=== PATIENT | female | born 1975 | race Caucasian/White ===

== ENCOUNTER 2020-05-06 11:00 | Outpatient (REF) | payer MEDICAID, SELFPAY ==
--- NOTE | 2020-05-06 11:43 | XR_ITS ---
EXAMINATION: XR CHEST CLINICAL INFORMATION: Cough, shortness of breath COMPARISON: 12/23/2016 TECHNIQUE: 2 views of the chest were obtained. FINDINGS: No significant abnormality is noted involving the heart, lungs, mediastinum, bony thorax or soft tissues. XR/XR chest 2V IMPRESSION: No acute pulmonary disease. No significant change from prior study
[2020-05-06 12:27] LABS: Color Urine YELLOW; Glucose Urine UA NEG (NEG); Leukocyte Esterase Urine TRACE (NEG); Nitrite Urine NEG (NEG); Specific Gravity - Urine 1.025 (1.005-1.025); Urine Blood NEG (NEG); Urine Ketones NEG (NEG); Urine Protein TRACE MG/DL (NEG-TRACE)
[2020-05-06 12:27] LABS: MANUAL DIFF FLAG NO
[2020-05-06 12:28] LABS: Appearance Urine CLOUDY
[2020-05-06 12:41] LABS: Bacteria Urine 1+ /LPF; Mucus Urine 1+ /LPF; Squamous Epithelial Cell Urine 3+ /LPF; Trichomonas Urine NOTED
[2020-05-06 12:41] LABS: Basophils Absolute Auto 0.1 X10*3/uL (0.0-0.2); Basophils Percent Auto 0.8 % (0-2); Eosinophils Absolute Auto 0.2 X10*3/uL (0.0-0.4); Eosinophils Percent Auto 2.3 % (0-4); Hematocrit 36.7 % (37-47); Hemoglobin 11.7 g/dl (12.0-16.0); Imm Gran Abs Auto 0.02 X10*3/uL (0.00-0.03); Imm Gran Pct Auto 0.3 % (0.0-0.4); Lymphocytes Absolute Auto 1.8 X10*3/uL (1.2-4.9); Lymphocytes Percent Auto 22.3 % (20-40); Mean Corpuscular HGB Conc 31.9 g/dl (31.0-35.0); Mean Corpuscular Hemoglobin 27.9 pg (27.0-33.0); Mean Corpuscular Volume 87.6 fL (80-98); Mean Platelet Volume 10.4 fL (9.4-12.3); Monocytes Absolute Auto 0.7 X10*3/uL (0.1-1.2); Monocytes Percent Auto 8.9 % (2-11); Neutrophils Absolute Auto 5.1 X10*3/uL (2.0-8.3); Neutrophils Percent Auto 65.4 % (45-73); Platelet Count 332 X10*3/uL (160-400); Red Blood Count 4.19 X10*6/uL (4.20-5.50); Red Cell Distribution Width 16.7 % (11.0-16.0); White Blood Count 7.9 X10*3/uL (4.8-10.8)
[2020-05-06 13:16] LABS: Estimated Average Glucose 108 mg/dL; Hemoglobin A1c % 5.4 %; TSH reflex Free T4 1.77 mIU/mL (0.32-4.0); Vitamin D 25-OH Total 4.8 ng/mL (>30)
[2020-05-06 13:19] LABS: Alanine Aminotransferase 24 U/L (0-31); Albumin Level 4.4 g/dL (3.5-5.0); Alkaline Phosphatase 70 U/L (39-117); Anion Gap 14 (12-20); Aspartate Amino Transferase 26 U/L (5-31); Bilirubin Total 0.6 mg/dL (0.0-1.0); Blood Urea Nitrogen 6 mg/dL (9-16); Calcium 8.9 mg/dL (8.4-10.2); Carbon Dioxide 24 mmol/L (22-29); Chloride 103 mmol/L (96-108); Cholesterol 355 mg/dL; Estimated Glomerular Filt Rate > 60; Glucose Random 101 mg/dL (60-115); HDL Cholesterol 34 mg/dL; Iron 95 mcg/dL (30-160); LDL Cholesterol Calculated 267 mg/dl; Percent Iron Saturation 21 % (15-50); Potassium 3.7 mmol/l (3.3-5.1); Sodium 137 mmol/L (135-145); Total Iron Binding Capacity 448 mcg/dL (228-428); Total Protein 7.1 g/dL (6.5-8.0); Triglycerides 271 mg/dL; Unsaturated Iron Binding 353 ug/dL
[2020-05-06 13:38] LABS: Folate 8.1 ng/mL (> or = 4.0); Vitamin B12 308 pg/mL (200-900)
[2020-05-08 08:31] LABS: ~HepC Num1 0.08 S/CO (0.00-0.79); ~Hepatitis C Antibody Nonreactive (Nonreactive)
[2020-05-08 08:49] LABS: Hepatitis A Antibody IgG Nonreactive (Nonreactive); ~Hepatitis A Antibody IgG 0.34 S/CO (0.00-0.99)
[2020-05-08 08:57] LABS: HBsAGNum1 0.22 S/CO (0.00-0.99); Hepatitis B Core Antibody Nonreactive (Nonreactive); Hepatitis B Surface Antigen Negative (Negative); ~Hepatitis B Surface Antibody REACTIVE (Nonreactive)
== END 2020-05-06 11:01 | disposition home or self-care (01) ==
LOC: HO.LAB 11:00
PROVIDERS: PCP Registered Nurse; Visit Provider Registered Nurse
DX: G47.19 Other hypersomnia (principal); F17.200 Nicotine dependence, unspecified, uncomplicated; G47.9 Sleep disorder, unspecified; R05 Cough; R06.02 Shortness of breath; Z71.89 Other specified counseling; M54.9 Dorsalgia, unspecified
CPT/HCPCS: 36415; 71046; 80053; 80061; 81001; 82306; 82607; 82746; 83036; 83540; 84443; 85025; 86704; 86706; 86708; 86803; 87340

== ENCOUNTER 2020-05-27 15:55 | Outpatient (REF) | payer MEDICAID, SELFPAY | END 2020-05-27 15:56 | disposition home or self-care (01) | LOC: HO.LAB 15:55 | PROVIDERS: PCP Registered Nurse; Visit Provider Internal Medicine | DX: Z20.828 Contact with and (suspected) exposure to other viral communicable diseases (principal) | CPT/HCPCS: C9803; U0003 ==

== ENCOUNTER → 2020-06-09 13:53 | Outpatient (BNVA) | payer MEDICAID, SELFPAY | PROVIDERS: PCP Registered Nurse; Visit Provider Internal Medicine | DX: R06.00 Dyspnea, unspecified (principal); R05 Cough; F17.200 Nicotine dependence, unspecified, uncomplicated | CPT/HCPCS: 99202 ==

== ENCOUNTER 2022-07-14 21:06 | Emergency (ER) | payer MEDICAID, SELFPAY ==
--- NOTE | ~2022-07-14 | US_ITS ---
EXAMINATION: US VENOUS WITH DOPPLER UPPER EXTREMITY, RIGHT CLINICAL INFORMATION: Swelling. Pain. COMPARISON: None TECHNIQUE: Ultrasound of the upper extremity is performed using compression sonography and color and pulse Doppler flow with assessment of augmentation of flow. There is also imaging and Doppler assessment of the jugular and subclavian veins. Spectral analysis with color-flow imaging is performed. FINDINGS: Respiratory variation, normal compression, and augmented flow are noted throughout the upper extremity including the axillary, brachial, cubital, and radial and ulnar veins. There is normal flow in the internal jugular and subclavian veins. There is no visible deep or superficial thrombophlebitis. If the patient's symptoms progress, a followup ultrasound in 5 -7 days might be of value to exclude proximal propagation from a nonvisualized distal arm vein. US/US venous duplex UE RT IMPRESSION: No DVT demonstrated in the right upper extremity
[2022-07-14 21:14] VITALS: BP 130/74; PULSE 104; RESP 18; O2SAT 99; BMI 31.1
--- NOTE | 2022-07-14 21:52 | ED_ITS ---
HPI - General Adult General Chief complaint: General Medical Stated complaint: Right arm injury Time Seen by Provider: 07/14/22 21:25 Source: patient Mode of arrival: ambulatory Limitations: no limitations History of Present Illness HPI narrative: Patient otherwise healthy complaining of pain in the right forearm for last 1 week patient went to bed next thing she woke up noticed swelling gradually swelling got worse with pain no history of DVTs in the past no IV drug use no trauma Related Data Home Medications Medication Instructions Recorded Confirmed albuterol sulfate 90 mcg/actuation 2 puff inhalation Q6H PRN 06/09/20 aerosol inhaler (ProAir HFA) fluticasone 100 mcg-salmeterol 50 1 inh inhalation BID 06/09/20 mcg/dose blistr powdr for inhalation (Advair Diskus) Previous Rx's Medication Instructions Recorded ibuprofen 600 mg tablet 600 mg PO Q6H PRN fever or pain 07/14/22 #30 tabs Allergies Allergy/AdvReac Type Severity Reaction Status Date / Time Sulfa (Sulfonamide Allergy Unknown Unknown Verified 06/09/20 14:04 Antibiotics) Review of Systems Review of Systems: Yes all other systems are reviewed and are negative [facility] [place] Past Medical History Medical History Cough Dyspnea on exertion Smoker Social History Social History Cigarette Packs Per Day: 1 Cigarettes Per Day: 20 Years Smoked: 27 years Advance Directives: No Advance Directives Information Provided: No Physical Exam ED Vital Signs: Vital Signs - 24 hr 07/14/22 21:14 Pulse Rate 104 H Respiratory Rate 18 Blood Pressure 130/74 Pulse Oximetry 99 Oxygen Delivery Method Room Air BMI result Body Mass Index 31.1 Const Other: Appearance: Alert. Oriented X3. No acute distress. ENT: Pharynx normal. Oral Mucosa moist Neck: Normal inspection. Neck supple. CVS: Normal heart rate and rhythm. Pulses normal. Respiratory: No respiratory distress. Equal air entry bilateral, no wheezing/rales/rhonchi Skin: Skin warm and dry. Normal skin color. Normal skin turgor. Extremities: No lower extremity edema. Right forearm swollen mostly in the volar aspect increased pain on flexion of the fingers and hand neurovascular intact Neuro: Oriented X 3. Extrem Elbow/forearm/wrist images: 1. Diffuse swelling and tenderness right anterior aspect of the forearm pain increases on palmar flexion of the Medications Administered Discontinued Medications Generic Name Dose Route Start Last Admin Trade Name Dusty PRN Reason Stop Dose Admin Ketorolac Tromethamine 30 mg 07/14/22 23:44 07/14/22 23:49 Ketorolac Tromethamine 30 Mg/Ml Vial IVPUSH 07/14/22 23:45 30 mg ONCE ONE Administration Medical Decision Making Lab Data 07/14/22 22:35 07/14/22 22:35 Labs: Lab Results 07/14/22 07/14/22 07/14/22 Range/Units 22:35 22:35 22:35 WBC 6.8 (4.8-10.8) X10*3/uL RBC 3.74 L (4.20-5.50) X10*6/uL Hgb 9.8 L (12.0-16.0) g/dl Hct 31.1 L (37.0-47.0) % MCV 83.2 (80.0-98.0) fL MCH 26.2 L (27.0-33.0) pg MCHC 31.5 (31.0-35.0) g/dl RDW 15.8 (11.0-16.0) % Plt Count 446 H (160-400) X10*3/uL MPV 10.4 (9.4-12.3) fL Immature Gran % (Auto) 0.3 (0.0-0.4) % Neut % (Auto) 56.3 (45-73) % Lymph % (Auto) 29.4 (20-40) % [place]asta % (Auto) 9.5 (2-11) % Eos % (Auto) 3.3 (0-4) % Baso % (Auto) 1.2 (0-2) % Lymph # (Auto) 2.0 (1.2-4.9) X10*3/uL [place] # (Auto) 0.6 (0.1-1.2) X10*3/uL Eos # (Auto) 0.2 (0.0-0.4) X10*3/uL Baso # (Auto) 0.1 (0.0-0.2) X10*3/uL Abs Immat Gran (auto) 0.02 (0.00-0.03) X10*3/uL Absolute Neuts (auto) 3.8 (2.0-8.3) x10*3/uL Absolute Nucleated RBC 0.000 (0.0-0.012) X10*3/uL Nucleated RBC % (auto) 0.0 (0.0-0.2) /100WBC ESR (0-20) MM/HR PT 11.9 (10.0-13.1) SEC INR 1.0 (0.9-1.1) D-Dimer High Sensitivty 332 NG/ML Sodium 138 (135-145) mmol/L Potassium 3.6 (3.3-5.1) mmol/L Chloride 104 (96-108) mmol/L Carbon Dioxide 24 (22-29) mmol/L Anion Gap 14 (12-20) BUN 5 L (9-16) mg/dL Creatinine 0.72 (0.5-1.4) mg/dL Estim Creat Clear Calc 92.8 Estimated GFR > 60 Random Glucose 106 (60-115) mg/dL Calcium 9.5 D (8.4-10.2) mg/dL Total Bilirubin 0.2 (0.0-1.0) mg/dL AST 29 (5-31) U/L ALT 35 H (0-31) U/L Alkaline Phosphatase 73 (39-117) U/L C-Reactive Protein 1.27 H (< or = 0.50) mg/dL Total Protein 7.2 (6.5-8.0) g/dL Albumin 4.4 (3.5-5.0) g/dL 07/14/22 Range/Units 22:35 WBC (4.8-10.8) X10*3/uL RBC (4.20-5.50) X10*6/uL Hgb (12.0-16.0) g/dl Hct (37.0-47.0) % MCV (80.0-98.0) fL MCH (27.0-33.0) pg MCHC (31.0-35.0) g/dl RDW (11.0-16.0) % Plt Count (160-400) X10*3/uL MPV (9.4-12.3) fL Immature Gran % (Auto) (0.0-0.4) % Neut % (Auto) (45-73) % Lymph % (Auto) (20-40) % Shasta % (Auto) (2-11) % Eos % (Auto) (0-4) % Baso % (Auto) (0-2) % Lymph # (Auto) (1.2-4.9) X10*3/uL [place] # (Auto) (0.1-1.2) X10*3/uL Eos # (Auto) (0.0-0.4) X10*3/uL Baso # (Auto) (0.0-0.2) X10*3/uL Abs Immat Gran (auto) (0.00-0.03) X10*3/uL Absolute Neuts (auto) (2.0-8.3) x10*3/uL Absolute Nucleated RBC (0.0-0.012) X10*3/uL Nucleated RBC % (auto) (0.0-0.2) /100WBC ESR 23 H (0-20) MM/HR PT (10.0-13.1) SEC INR (0.9-1.1) D-Dimer High Sensitivty NG/ML Sodium (135-145) mmol/L Potassium (3.3-5.1) mmol/L Chloride (96-108) mmol/L Carbon Dioxide (22-29) mmol/L Anion Gap (12-20) BUN (9-16) mg/dL Creatinine (0.5-1.4) mg/dL Estim Creat Clear Calc Estimated GFR Random Glucose (60-115) mg/dL Calcium (8.4-10.2) mg/dL Total Bilirubin (0.0-1.0) mg/dL AST (5-31) U/L ALT (0-31) U/L Alkaline Phosphatase (39-117) U/L C-Reactive Protein (< or = 0.50) mg/dL Total Protein (6.5-8.0) g/dL Albumin (3.5-5.0) g/dL Discharge Plan Discharge Clinical Impression: Musculoskeletal limb pain Patient Disposition: Home, Self-Care Instructions: Musculoskeletal Pain (ED) Additional Instructions: cause of pain in her right forearm is not very clear likely muscular pain/inflammatory disease Wear the splint for support Ibuprofen for pain Follow with PCP if pain continues to get worse Prescriptions: New ibuprofen 600 mg tablet 600 mg PO Q6H PRN (Reason: fever or pain) Qty: 30 0RF No Action fluticasone propion-salmeterol [Advair Diskus] 100-50 mcg/dose blister with d evice 1 inh inhalation BID albuterol sulfate [ProAir HFA] 90 mcg/actuation HFA aerosol inhaler 2 puff inhalation Q6H PRN Interventions: ED Discharge Assessment Last Done: 07/14/22 23:57 Discharge Date/Time: 07/14/22 23:58
[2022-07-14 22:41] LABS: MANUAL DIFF FLAG NO
[2022-07-14 22:43] LABS: Basophils Absolute Auto 0.1 X10*3/uL (0.0-0.2); Basophils Percent Auto 1.2 % (0-2); Eosinophils Absolute Auto 0.2 X10*3/uL (0.0-0.4); Eosinophils Percent Auto 3.3 % (0-4); Hematocrit 31.1 % (37.0-47.0); Hemoglobin 9.8 g/dl (12.0-16.0); Imm Gran Abs Auto 0.02 X10*3/uL (0.00-0.03); Imm Gran Pct Auto 0.3 % (0.0-0.4); Lymphocytes Percent Auto 29.4 % (20-40); Mean Corpuscular HGB Conc 31.5 g/dl (31.0-35.0); Mean Corpuscular Hemoglobin 26.2 pg (27.0-33.0); Mean Corpuscular Volume 83.2 fL (80.0-98.0); Mean Platelet Volume 10.4 fL (9.4-12.3); Monocytes Absolute Auto 0.6 X10*3/uL (0.1-1.2); Monocytes Percent Auto 9.5 % (2-11); Neutrophils Absolute Auto 3.8 x10*3/uL (2.0-8.3); Neutrophils Percent Auto 56.3 % (45-73); Platelet Count 446 X10*3/uL (160-400); Red Blood Count 3.74 X10*6/uL (4.20-5.50); Red Cell Distribution Width 15.8 % (11.0-16.0); White Blood Count 6.8 X10*3/uL (4.8-10.8)
[2022-07-14 22:48] LABS: Prothrombin Time 11.9 SEC (10.0-13.1)
[2022-07-14 22:57] LABS: Alanine Aminotransferase 35 U/L (0-31); Albumin Level 4.4 g/dL (3.5-5.0); Alkaline Phosphatase 73 U/L (39-117); Anion Gap 14 (12-20); Aspartate Amino Transferase 29 U/L (5-31); Bilirubin Total 0.2 mg/dL (0.0-1.0); Blood Urea Nitrogen 5 mg/dL (9-16); C Reactive Protein 1.27 mg/dL (< or = 0.50); Calcium 9.5 mg/dL (8.4-10.2); Carbon Dioxide 24 mmol/L (22-29); Chloride 104 mmol/L (96-108); Creatinine Clr Calc Pharmacy 92.8; Estimated Glomerular Filt Rate > 60; Glucose Random 106 mg/dL (60-115); Potassium 3.6 mmol/L (3.3-5.1); Sodium 138 mmol/L (135-145); Total Protein 7.2 g/dL (6.5-8.0)
[2022-07-14 23:08] LABS: D Dimer High Sensitivity 332 NG/ML
[2022-07-14 23:28] LABS: Erythrocyte Sedimentation Rate 23 MM/HR (0-20)
--- NOTE | 2022-07-14 23:43 | PC.NURSE ---
Patient refused splint states it hurts too much Dr. Ortega notified.
[2022-07-14] MEDS: Ketorolac Tromethamine 30 MG/ML VIAL IVPUSH (23:49)
--- NOTE | 2022-07-14 23:57 | PC.NURSE ---
Patient changed her mind now wants wrist splint
== END 2022-07-14 23:58 | disposition home or self-care (01) ==
PROVIDERS: Emergency Provider Internal Medicine
DX: M79.18 Myalgia, other site (principal); M79.631 Pain in right forearm; F17.210 Nicotine dependence, cigarettes, uncomplicated
CPT/HCPCS: 36415; 80053; 85025; 85379; 85610; 85652; 86140; 93971; 96374; 99283; 99284; J1885

== ENCOUNTER 2023-09-25 13:34 | Emergency (ER) | payer MEDICAID, SELFPAY ==
--- NOTE | ~2023-09-25 | XR_ITS ---
EXAMINATION: XR FOREARM, LEFT CLINICAL INFORMATION: Injury pain COMPARISON: None available. TECHNIQUE: AP and lateral views of the left forearm were obtained. FINDINGS: Plate and multiple screws arthrodesis of the radius and ulna, hardware intact properly positioned. Old fracture healed. Bone alignment satisfactory. Surrounding soft tissue unremarkable. XR/XR forearm LT 2V IMPRESSION: 1. Hardware arthrodesis of the radius and ulna, hardware intact properly positioned. 2. No acute fracture.
--- NOTE | 2023-09-25 13:56 | ED_ITS ---
HPI - Extremity Injury (Upper) General Chief Complaint: Extremity Injury, Upper Stated Complaint: L arm pain Time Seen by Provider: 09/25/23 14:29 Source: patient Mode of arrival: ambulatory Limitations: no limitations History of Present Illness HPI narrative: Patient is a 48-year-old female who presents to the emergency department of left forearm pain, reports that she had struck her arm against something last week. She presented to an urgent care, was advised that she had a strain of the shoulder due to palpable muscle tenderness and tightness on physical examination. Patient denies having any x-ray obtained. She reports that she has metal plates in this forearm secondary to fractures as a teenager. Reports weakness to the left hand, continued pain despite tylenol and advil. Related Data Home Medications Medication Instructions Recorded Confirmed albuterol sulfate 90 mcg/actuation 2 puff inhalation Q6H PRN 06/09/20 aerosol inhaler (ProAir HFA) fluticasone 100 mcg-salmeterol 50 1 inh inhalation BID 06/09/20 mcg/dose blistr powdr for inhalation (Advair Diskus) Previous Rx's Medication Instructions Recorded ibuprofen 600 mg tablet 600 mg PO Q6H PRN fever or pain 07/14/22 #30 tabs Allergies Allergy/AdvReac Type Severity Reaction Status Date / Time Sulfa (Sulfonamide Allergy Unknown Unknown Verified 09/25/23 13:57 Antibiotics) Review of Systems Review of Systems: Yes all other systems are reviewed and are negative [facility]END[facility] TO [facility] Past Medical History Attestation statement: The following information was validated with the patient. Source: old records reviewed Medical History Dyspnea on exertion Cough Smoker Social History Social History Cigarette Packs Per Day: 1 Cigarettes Per Day: 20 Years Smoked: 27 years Advance Directives: No Advance Directives Information Provided: No Physical Exam Vital Signs: Vital Signs: Last Vital Signs Temp 98.3 F 09/25/23 13:57 Pulse 103 H 09/25/23 13:57 Resp 18 09/25/23 13:57 BP 155/85 H 09/25/23 13:57 Pulse Ox 100 09/25/23 13:57 O2 Del Method Room Air 09/25/23 13:57 BMI result Body Mass Index 29.3 Appearance: Alert.?Oriented to person, place and time. No acute distress.?Normal affect. Neck: Normal inspection.? Neck supple.?? CVS: Heart sounds normal. Normal heart rate and rhythm.? Pulses normal.?? Respiratory: No respiratory distress.? Lung sounds clear to auscultation bilaterally?? Abdomen: Soft and non-tender. Normoactive bowel sounds. Skin: Skin warm and dry.? Normal skin color.? Extremities: No extremity edema. Diffuse tenderness upon palpation to the mid forearm. 2+ radial pulse bilaterally. Sensation intact.? Neuro: Moves all extremities spontaneously. Sensation intact bilaterally. Ambulates with normal steady gait. Course Course Course Narrative: This is an RME: Additional HPI, ROS, PE not included below will be deferred to primary provider. Patient is a 48-year-old female who presents to the emergency department of left forearm pain, reports that she had struck her arm against something last week. She presented to an urgent care, was advised that she had a strain of the shoulder due to palpable muscle tenderness and tightness on physical examination. Patient denies having any x-ray obtained. She reports that she has metal plates in this forearm secondary to fractures as a teenager. Reports weakness to the left hand, continued pain despite tylenol and advil. Plan: XR Medications Administered Discontinued Medications Generic Name Dose Route Start Last Admin Trade Name Freq PRN Reason Stop Dose Admin Acetaminophen 975 mg 09/25/23 14:41 09/25/23 15:31 Acetaminophen 325 Mg Tablet PO 09/25/23 14:42 Not Given ONCE ONE Ibuprofen 600 mg 09/25/23 14:41 09/25/23 15:31 Ibuprofen 600 Mg Tablet PO 09/25/23 14:42 Not Given ONCE ONE Medical Decision Making Medical Decision Making MDM Narrative: Patient is a 48-year-old female presents emergency department for evaluation of traumatic left forearm pain as per HPI physical exam portion of this note. XR obtained today to evaluate for osseous abnormality, revealing displaced hardware with loose screw from the radial plate, Orthopedics was consulted and recommends outpatient follow-up. Extremities neurovascularly intact distally. Discussed conservative care and OTC pain management. All questions answered. Stable for discharge Differential Diagnosis Differential Diagnoses: The differential diagnosis associated with the presentation includes (Fracture, dislocation, displaced hardware, contusion, strain) Consult Healthcare Provider Management of the patient was discussed with: Ring Spinner (Orthopedics) Guillermina JOSÉ - likely chronic, outpatient follow-up Independent Interpretation I performed an independent interpretation of an: Plain X-Ray (Displaced hardware of the left radius with screw loose) Radiology Impression Discussion of test interpretation with radiology: I have reviewed the radiologist's reading. Radiologist Impression: XR/XR forearm LT 2V IMPRESSION: 1. Hardware arthrodesis of the radius and ulna, hardware intact properly positioned. 2. No acute fracture. Prescription Management I considered prescription management with: Pain Medication (Acetaminophen/ibuprofen) Discharge Plan Discharge Clinical Impression: Contusion of forearm, left Patient Disposition: Home, Self-Care Instructions: Contusion in Adults (ED) Additional Instructions: Be sure to rest, apply ice to the area for 10-15 minutes 3-4 times daily, elevate your arm when possible. You can take ibuprofen 200 mg, 3 tablets (600mg) every 6-8 hours as needed for pain, in addition to Tylenol 500 mg, 2 tablets (1,000mg) every 4-6 hours as needed for pain, but not to exceed 3 doses daily (3,000mg).? As discussed, it does appear as though 1 of the screws from your plate in the forearm is displaced. Please contact the orthopedic office Tuesday morning when they open to arrange for further follow-up. Return back to emergency department any new or worsening symptoms or concerns. Prescriptions: No Action ibuprofen 600 mg tablet 600 mg PO Q6H PRN (Reason: fever or pain) Qty: 30 0RF fluticasone propion-salmeterol [Advair Diskus] 100-50 mcg/dose blister with device 1 inh inhalation BID albuterol sulfate [ProAir HFA] 90 mcg/actuation HFA aerosol inhaler 2 puff inhalation Q6H PRN Referrals: Marlen Griffin PA-C [Physician Building Principal] -
[2023-09-25 13:57] VITALS: BP 155/85; PULSE 103; RESP 18; TEMP 36.8; O2SAT 100; BMI 29.3
--- NOTE | 2023-09-25 15:32 | PC.NURSE ---
patient refused pain medication, states she has been taking it at home with no relief
[2023-09-25 16:13] VITALS: BP 158/74; PULSE 91; RESP 18; TEMP 36.7; O2SAT 98
[2023-09-25 16:31] VITALS: BP 158/74; PULSE 91; RESP 18; TEMP 36.7; O2SAT 98
== END 2023-09-25 16:31 | disposition home or self-care (01) ==
PROVIDERS: Emergency Provider Student in an Organized Health Care Education/Training Program
DX: S50.12XA Contusion of left forearm, initial encounter (principal); W22.8XXA Striking against or struck by other objects, initial encounter; Y93.9 Activity, unspecified; Y92.9 Unspecified place or not applicable; Y99.9 Unspecified external cause status
CPT/HCPCS: 73090; 99283

== ENCOUNTER 2023-10-13 12:42 | Outpatient (REF) | payer MEDICAID, SELFPAY | END 2023-10-13 12:43 | disposition home or self-care (01) | LOC: HO.HOSX 12:42 | PROVIDERS: Visit Provider Physician Assistant | DX: M79.601 Pain in right arm (principal); R20.2 Paresthesia of skin; Z96.9 Presence of functional implant, unspecified; S92.351A Displaced fracture of fifth metatarsal bone, right foot, initial encounter for closed fracture; X58.XXXA Exposure to other specified factors, initial encounter; Y93.9 Activity, unspecified; Y92.9 Unspecified place or not applicable; Y99.9 Unspecified external cause status | CPT/HCPCS: 99212 ==

== ENCOUNTER 2023-10-13 14:53 | Outpatient (AMB) | payer MEDICAID, SELFPAY ==
--- NOTE | 2023-10-13 15:23 | MHC.OFFVIS ---
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 Patient reports that she recently started working at [employer] and has to frequently lift items. States a month ago she woke up with numbness in her arm and the following day day she had excruciating pain. She continues to have pain/discomfort with no improvement. States her pain starts in her forearm and will radiate up and down her arm. She has pain with any type of movement of her arm and numbness in fingers. Found very little to no relief with diclofenac cream. No relief with ibuprofen and Tylenol. No previous tx. 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 She states she had a both-bone forearm fracture approximately 35 years ago and has had significant limitations with supination since the injury. 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 She is performing repetitive motions and lifting which is irritating her left forearm. She has noticed some intermittent numbness in the left forearm which radiates into her hand and fingers. She also feels pain with wrist extension that goes into her forearm. She was seen in the emergency department where x-rays were obtained which showed hardware intact in both bones and she was referred to our office for ortho eval. 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 She does have hypersensitivity over the volar aspect of the forearm which extends into the carpal canal of the left wrist. She has a positive Tinel's over the cubital and carpal tunnel. She can perform cross fingers and okay sign. Finger abduction adduction intact. She can supinate approximately 10 degrees. She has full pronation. Results Reviewed Results Reviewed: X-rays of the left forearm obtained in the emergency department on September 24 significant for intact orthopedic hardware with no new fractures or dislocations. Assessment & Plan Assessment & Plan (1) Retained orthopedic hardware: Code(s): Z96.9 - Presence of functional implant, unspecified Category: Medical (2) Paresthesia and pain of left extremity: Code(s): M79.609 - Pain in unspecified limb; R20.2 - Paresthesia of skin Category: Medical Plan We discussed options today which include EMG/nerve conduction study of the left upper extremity to further evaluate the source of her numbness. I explained if this comes back with some sort of neuropathy we can discuss potential surgical intervention in hopes that it will solve the discomfort she is experiencing in her left forearm and hand. If her EMG study is negative then we may need to look at the hardware as her source of pain and potentially discuss removal of hardware in hopes that this will help resolve her symptoms. I did explain to her that 1 or the other procedure or both may or may not give full resolution of her symptoms and we need to understand these risks benefits and alternatives to each procedure if we were to go forward with either of them. She does understand this and will see me back once the EMG study is completed so we can discuss the next step in her treatment. Orders: Orders XR foot RT min 3V Today S92.351A - Displaced fracture of fifth metatarsal bone, right foot, initial encounter for closed fracture NE nerve conduction velocity Today R20.0 - Anesthesia of skin, R20.2 - Paresthesia of skin NE electromyogram (EMG) Today R20.0 - Anesthesia of skin, R20.2 - Paresthesia of skin
[2023-10-13 16:19] VITALS: BMI 29.3
== END 2023-10-13 15:58 | disposition home or self-care (01) ==
PROVIDERS: Visit Provider Physician Assistant
DX: Z96.9 Presence of functional implant, unspecified (principal); M79.609 Pain in unspecified limb; R20.2 Paresthesia of skin
CPT/HCPCS: 99203

== ENCOUNTER 2023-10-18 16:51 | Emergency (ER) | payer MEDICAID, SELFPAY ==
--- NOTE | ~2023-10-18 | CT_ITS ---
EXAMINATION: CT abdomen pelvis wo IV con CLINICAL INFORMATION: Reason for Exam Colitis with significant anemia COMPARISON: No prior CT available for comparison. TECHNIQUE: Multidetector volumetric imaging was performed from the superior aspect of the liver through the pubic symphysis , noncontrast CT. Sagittal and coronal reformatted images were obtained on the technologist's workstation. This CT examination was performed using dose optimization techniques as appropriate, variously including the following: *Automated exposure control *Adjustment of mA and/or kV according to patient size (this includes techniques or standardized protocols for targeted exams where dose is matched to indication/reason for exam; i.e. extremities or head) *Use of iterative reconstruction technique DLP: 549 mGy-cm FINDINGS: LOWER THORAX: Included lung bases are clear. HEPATOBILIARY: No focal hepatic lesions. No biliary ductal dilatation. GALLBLADDER: Gallbladder unremarkable. SPLEEN: There is peripherally calcified mass in the spleen measures 2.8 cm probably chronic. Uncertain etiology. Could be infection or neoplastic. Evaluation is limited due to lack of contrast. PANCREAS: No focal mass or ductal dilatation. STOMACH AND GASTROINTESTINAL TRACT: Stomach is grossly unremarkable. Circumferential wall thickening of the colon with low attenuation of its mucosal lining especially the cecum, nonspecific and could be sequela of chronic or subclinical or prior colitis. No evidence of bowel obstruction. ADRENALS: No adrenal nodules. KIDNEYS/URETERS: There is a cyst in the right kidney 1.8 cm this is likely a benign Bosniak class I cyst. No follow-up imaging recommended. No kidney stone or hydronephrosis. Perinephric fat are clear. URINARY BLADDER: Partially decompressed. PELVIC VISCERA: There is a large uterine mass 7.5 cm uncertain etiology not well characterized on this CT scan. No pelvic lymphadenopathy. No free air or fluid. Rectum and perirectal fat are clear. PERITONEUM: No free air or fluid. LYMPH NODES: No lymphadenopathy. VASCULAR:Abdominal aorta normal in size, no aneurysm found. BONES, ABDOMINAL WALL AND SOFT TISSUES: Age-appropriate changes of the spine and skeletal system, no destructive osteolytic or osteosclerotic bone lesion found CT/CT abdomen pelvis wo IV con IMPRESSION: 1. Circumferential wall thickening of the colon with low attenuation of its mucosal lining especially the cecum, nonspecific and could be sequela of chronic or subclinical or prior colitis. No evidence of bowel obstruction. 2. Large uterine mass 7.5 cm uncertain etiology not well characterized on this CT scan. Would recommend correlation with follow-up pelvic ultrasound. 3. Peripherally calcified mass in the spleen 2.8 cm probably chronic. Could be infection or neoplastic. Evaluation is limited due to lack of contrast.
--- NOTE | 2023-10-18 16:59 | ED.ABDPAIN ---
HPI - Abdominal Pain General Chief Complaint: Abdominal Pain Stated Complaint: upper L abd pain, hx of renal failure, N/V Time Seen by Provider: 10/18/23 16:58 Source: patient Mode of arrival: ambulatory Limitations: no limitations History of Present Illness HPI narrative: Patient came with vomiting and diarrhea since 03:00 last night vomited about 15 times and same number of watery diarrhea with diffuse abdominal cramps denied any seafood use no recent travel no other family sick no fever no chills no upper respiratory symptoms no alcohol use no seafood intake patient does have menorrhagia with periods lasting more than 2 weeks not taking iron pills, no melena no history of ulcer has not seen any group chief operator for a while Related Data Home Medications ?Medication ?Instructions ?Recorded ?Confirmed albuterol sulfate 90 mcg/actuation 2 puff inhalation Q6H PRN 06/09/20 aerosol inhaler (ProAir HFA) fluticasone 100 mcg-salmeterol 50 1 inh inhalation BID 06/09/20 mcg/dose blistr powdr for inhalation (Advair Diskus) diclofenac sodium 1 % topical gel topical 10/13/23 10/13/23 Previous Rx's ?Medication ?Instructions ?Recorded ibuprofen 600 mg tablet 600 mg PO Q6H PRN fever or pain 07/14/22 #30 tabs dicyclomine 20 mg tablet 20 mg PO QID PRN abdominal pain 10/18/23 #20 tabs ferrous sulfate 325 mg (65 mg 325 mg PO DAILY #90 tabs 10/18/23 iron) tablet ondansetron 4 mg disintegrating 4 mg PO Q6-8H PRN nausea and 10/18/23 tablet vomiting #10 tabs Allergies Allergy/AdvReac Type Severity Reaction Status Date / Time Sulfa (Sulfonamide Allergy Unknown Unknown Verified 10/18/23 17:09 Antibiotics) Review of Systems Review of Systems Yes all other systems are reviewed and are negative PMFSH Past Medical History Medical History (Updated 10/18/23 @ 23:53 by Jordan Chavez MD) Dyspnea on exertion Surgical History (Updated 10/18/23 @ 17:19 by Jordan Chavez MD) History of appendectomy Social History Social History Alcohol intake: current Alcohol intake frequency: a few times a week Cigarette Packs Per Day: 1 Cigarettes Per Day: 20 Years Smoked: 27 years Smoked in Last 30 Days: Yes Use of substances other than those prescribed or required for medical reasons: No Advance Directives: No Advance Directives Information Provided: No Do you have a plan to hurt others: No Plan Patient : No Current occupational status: employed Current occupation: [employer], right hand dominant Physical Exam ED Vital Signs: Vital Signs - 24 hr 10/18/23 17:03 10/18/23 17:05 10/18/23 19:44 Temperature 97.6 F 97.6 F Pulse Rate 76 76 75 Respiratory Rate 18 18 16 Blood Pressure 165/70 H 165/70 H 118/72 Pulse Oximetry 99 99 100 Oxygen Delivery Method Room Air Room Air Room Air 10/18/23 21:31 10/19/23 00:14 Temperature 97.3 F 97.9 F Pulse Rate 72 81 Respiratory Rate 16 16 Blood Pressure 144/68 H 149/65 H Pulse Oximetry 97 98 Oxygen Delivery Method Room Air Room Air BMI result Body Mass Index 25.8 Appearance: Alert. Oriented X3. In moderate distress nauseated Eyes: No pallor or icterus ENT: Pharynx normal. Oral Mucosa moist Neck: Normal inspection. Neck supple. CVS: Normal heart rate and rhythm. Pulses normal. Respiratory: No respiratory distress. Equal air entry bilateral, no wheezing/rales/rhonchi Abdomen: Soft and diffuse tenderness no rebound tenderness or guarding Bowel sounds are present, no mass palpable, no CVA tenderness Skin: Skin warm and dry. Normal skin color. Normal skin turgor. Extremities: No lower extremity edema. No calf tenderness Neuro: Oriented X 3. Medical Decision Making Medical Decision Making MDM Narrative: Patient has acute gastroenteritis with iron deficiency anemia with history of same in the past used to be on iron tablets not taking for last 1 year does have heavy menstrual periods likely the cause for significant anemia iron profile showed decreased serum iron decreased TIBC and decrease transferrin saturation suggestive of chronic iron-deficiency anemia patient asymptomatic denies any significant shortness of breath does feel weak will give her p.o. iron tablets Lab Data 10/18/23 17:11 10/18/23 17:22 Labs: Lab Results 10/18/23 10/18/23 Range/Units 17:11 17:22 WBC 22.5 H (4.8-10.8) X10*3/uL RBC 3.90 L (4.20-5.50) X10*6/uL Hgb 7.7 L D (12.0-16.0) g/dl Hct 25.7 L (37.0-47.0) % MCV 65.9 L (80.0-98.0) fL MCH 19.7 L (27.0-33.0) pg MCHC 30.0 L (31.0-35.0) g/dl RDW 18.9 H (11.0-16.0) % Plt Count 351 (160-400) X10*3/uL MPV 10.0 (9.4-12.3) fL Immature Gran % (Auto) 0.6 H (0.0-0.4) % Neut % (Auto) 87.1 H (45-73) % Lymph % (Auto) 5.6 L (20-40) % Pacific % (Auto) 6.3 (2-11) % Eos % (Auto) 0.0 (0-4) % Baso % (Auto) 0.4 (0-2) % Lymph # (Auto) 1.3 (1.2-4.9) X10*3/uL Pacific # (Auto) 1.4 H (0.1-1.2) X10*3/uL Eos # (Auto) 0.0 (0.0-0.4) X10*3/uL Baso # (Auto) 0.1 (0.0-0.2) X10*3/uL Abs Immat Gran (auto) 0.14 H (0.00-0.03) X10*3/uL Absolute Neuts (auto) 19.6 H (2.0-8.3) x10*3/uL Absolute Nucleated RBC 0.000 (0.0-0.012) X10*3/uL Nucleated RBC % (auto) 0.0 (0.0-0.2) /100WBC Sodium 134 L (135-145) mmol/L Potassium 3.7 (3.3-5.1) mmol/L Chloride 100 (96-108) mmol/L Carbon Dioxide 23 (22-29) mmol/L Anion Gap 15 (12-20) BUN 9 (9-16) mg/dL Creatinine 0.63 (0.5-1.4) mg/dL Estim Creat Clear Calc 106.3 Estimated GFR > 60 Random Glucose 128 H (60-115) mg/dL Calcium 9.4 (8.4-10.2) mg/dL Magnesium 1.9 (1.6-2.6) mg/dL Iron 25 L (30-160) mcg/dL TIBC 464 H (228-428) mcg/dL % Saturation 5 L (15-50) % Unsat Iron Binding 439 ug/dL Total Bilirubin 0.4 (0.0-1.0) mg/dL AST 23 (5-31) U/L ALT 14 (0-31) U/L Alkaline Phosphatase 69 (39-117) U/L Total Protein 7.5 (6.5-8.0) g/dL Albumin 4.2 (3.5-5.0) g/dL Lipase 15 (8-78) U/L Medications Administered Discontinued Medications Generic Name Dose Route Start Last Admin Trade Name Freq PRN Reason Stop Dose Admin Dicyclomine HCl 20 mg 10/18/23 17:39 10/18/23 17:50 Dicyclomine Hcl 10 Mg Capsule PO 10/18/23 17:40 20 mg ONCE ONE Administration Ferrous Sulfate 324 mg 10/18/23 18:28 10/18/23 18:53 Ferrous Sulfate 324 Mg Tablet. PO 10/18/23 18:29 324 mg ONCE ONE Administration Sodium Chloride 1,000 mls @ 999 mls/hr 10/18/23 17:11 10/18/23 18:30 Ns IV 10/18/23 18:11 Infused .Q1H1M ONE Infusion Sodium Chloride 1,000 mls @ 999 mls/hr 10/18/23 21:18 10/19/23 00:07 Ns IV 10/18/23 22:18 Infused .Q1H1M ONE Infusion Loperamide HCl 2 mg 10/18/23 21:18 10/18/23 21:26 Loperamide Hcl 2 Mg Capsule PO 10/18/23 21:19 2 mg ONCE ONE Administration Morphine Sulfate 4 mg 10/18/23 17:41 10/18/23 17:51 Morphine Sulfate 4 Mg/Ml Cartridge IVPUSH 10/18/23 17:42 4 mg ONCE ONE Administration Protocol Ondansetron HCl 4 mg 10/18/23 17:11 10/18/23 17:26 Ondansetron Hcl 4 Mg/2 Ml Vial IVPUSH 10/18/23 17:12 4 mg ONCE ONE Administration Ondansetron HCl 4 mg 10/18/23 21:18 10/18/23 21:26 Ondansetron Hcl 4 Mg/2 Ml Vial IVPUSH 10/18/23 21:19 4 mg ONCE ONE Administration Prochlorperazine Edisylate 10 mg 10/18/23 23:07 10/18/23 23:28 Prochlorperazine Edisylate 10 Mg/2 Ml Vial IVPUSH 10/18/23 23:08 10 mg ONCE ONE Administration Discharge Plan Discharge Clinical Impression: Acute gastroenteritis, Iron deficiency anemia Patient Disposition: Home, Self-Care Instructions: Iron Rich Diet (ED), Iron Deficiency Anemia (ED), Gastroenteritis (ED) Additional Instructions: Drink plenty of fluids Take medication for nausea and vomiting as prescribed Take iron tablets daily Follow p with group chief operator for further management of dysfunctional uterine bleed Prescriptions: New ferrous sulfate 325 mg (65 mg iron) tablet 325 mg PO DAILY Qty: 90 2RF dicyclomine 20 mg tablet 20 mg PO QID PRN (Reason: abdominal pain) Qty: 20 0RF ondansetron 4 mg tablet,disintegrating 4 mg PO Q6-8H PRN (Reason: nausea and vomiting) Qty: 10 0RF No Action ibuprofen 600 mg tablet 600 mg PO Q6H PRN (Reason: fever or pain) Qty: 30 0RF fluticasone propion-salmeterol [Advair Diskus] 100-50 mcg/dose blister with device 1 inh inhalation BID albuterol sulfate [ProAir HFA] 90 mcg/actuation HFA aerosol inhaler 2 puff inhalation Q6H PRN diclofenac sodium 1 % gel topical Referrals: Tom Alba MD [Physician] - 2 weeks Interventions: ED Discharge Assessment Last Done: 10/19/23 00:14 Discharge Date/Time: 10/19/23 00:15 Print Language: Solomon Islander
[2023-10-18 17:00] VITALS: BP 154/80; PULSE 84; O2SAT 100
[2023-10-18 17:03] VITALS: BP 165/70; PULSE 76; RESP 18; TEMP 36.4; O2SAT 99; BMI 25.8
[2023-10-18 17:05] VITALS: BP 165/70; PULSE 76; RESP 18; TEMP 36.4; O2SAT 99
[2023-10-18] MEDS: 0.9 % Sodium Chloride 1,000 ML 999 ML IV ×2 (17:25→21:26)
[2023-10-18 17:26] LABS: MANUAL DIFF FLAG NO
[2023-10-18] MEDS: ondansetron HCL 4 MG/2 ML VIAL IVPUSH ×2 (17:26→21:26)
--- NOTE | 2023-10-18 17:28 | PC.NURSE ---
20gIV placed in the right AC - labs obtained/sent to lab. medication/IVF administered per provider order. pt requesting pain medication for abd pain - provider notified/aware.
[2023-10-18 17:30] LABS: Basophils Absolute Auto 0.1 X10*3/uL (0.0-0.2); Basophils Percent Auto 0.4 % (0-2); Hematocrit 25.7 % (37.0-47.0); Hemoglobin 7.7 g/dl (12.0-16.0); Imm Gran Abs Auto 0.14 X10*3/uL (0.00-0.03); Imm Gran Pct Auto 0.6 % (0.0-0.4); Lymphocytes Absolute Auto 1.3 X10*3/uL (1.2-4.9); Lymphocytes Percent Auto 5.6 % (20-40); Mean Corpuscular Hemoglobin 19.7 pg (27.0-33.0); Mean Corpuscular Volume 65.9 fL (80.0-98.0); Monocytes Absolute Auto 1.4 X10*3/uL (0.1-1.2); Monocytes Percent Auto 6.3 % (2-11); Neutrophils Absolute Auto 19.6 x10*3/uL (2.0-8.3); Neutrophils Percent Auto 87.1 % (45-73); Platelet Count 351 X10*3/uL (160-400); Red Cell Distribution Width 18.9 % (11.0-16.0); White Blood Count 22.5 X10*3/uL (4.8-10.8)
[2023-10-18 17:43] LABS: Alanine Aminotransferase 14 U/L (0-31); Albumin Level 4.2 g/dL (3.5-5.0); Alkaline Phosphatase 69 U/L (39-117); Anion Gap 15 (12-20); Aspartate Amino Transferase 23 U/L (5-31); Bilirubin Total 0.4 mg/dL (0.0-1.0); Blood Urea Nitrogen 9 mg/dL (9-16); Calcium 9.4 mg/dL (8.4-10.2); Carbon Dioxide 23 mmol/L (22-29); Chloride 100 mmol/L (96-108); Creatinine Clr Calc Pharmacy 106.3; Estimated Glomerular Filt Rate > 60; Glucose Random 128 mg/dL (60-115); Lipase 15 U/L (8-78); Magnesium 1.9 mg/dL (1.6-2.6); Potassium 3.7 mmol/L (3.3-5.1); Sodium 134 mmol/L (135-145); Total Protein 7.5 g/dL (6.5-8.0)
[2023-10-18] MEDS: Dicyclomine HCl 10 MG CAPSULE 20 MG PO (17:50)
[2023-10-18] MEDS: Morphine Sulfate 4 MG/ML CARTRIDGE IVPUSH (17:51)
[2023-10-18 18:25] LABS: Iron 25 mcg/dL (30-160); Percent Iron Saturation 5 % (15-50); Total Iron Binding Capacity 464 mcg/dL (228-428); Unsaturated Iron Binding 439 ug/dL
[2023-10-18] MEDS: Ferrous Sulfate 324 MG TABLET.DR PO (18:53)
[2023-10-18 19:44] VITALS: BP 118/72; PULSE 75; RESP 16; O2SAT 100
[2023-10-18] MEDS: Loperamide HCl 2 MG CAPSULE PO (21:26)
[2023-10-18 21:31] VITALS: BP 144/68; PULSE 72; RESP 16; TEMP 36.3; O2SAT 97
--- NOTE | 2023-10-18 22:40 | PC.NURSE ---
Patient continues to complain of nausea/ abd pain. Resting quietly on stretcher at this time.
[2023-10-18] MEDS: Prochlorperazine Edisylate 10 MG/2 ML VIAL IVPUSH (23:28)
--- NOTE | 2023-10-18 23:28 | PC.NURSE ---
this rn assumed care of pt, pt reporting nausea at this time, pt medicated per mar.
[2023-10-19 00:14] VITALS: BP 149/65; PULSE 81; RESP 16; TEMP 36.6; O2SAT 98
== END 2023-10-19 00:15 | disposition home or self-care (01) ==
PROVIDERS: Emergency Provider Internal Medicine
DX: K52.9 Noninfective gastroenteritis and colitis, unspecified (principal); D50.9 Iron deficiency anemia, unspecified; R11.2 Nausea with vomiting, unspecified; Z87.891 Personal history of nicotine dependence
CPT/HCPCS: 36415; 74176; 80053; 83540; 83690; 83735; 85025; 96361; 96374; 96375; 96376; 99284; J0737; J2270; J2405

== ENCOUNTER 2023-11-03 14:30 | Outpatient (REF) | payer MEDICAID, SELFPAY ==
--- NOTE | 2023-11-03 14:32 | EMG_ITS ---
Chief complaint: 1 month of pain and numbness on wrist and forearm History of left forearm ORIF 35 years ago Reason for referral: Evaluate for entrapment neuropathy Referred by: Marlen JOSÉ Procedure done: Left upper extremity NCS/EMG Precautions and/or limitations: None The limb temperature was monitored continuously and remained between 32-36 degrees C during the performance of the NCS. Nerve Conduction Studies Anti Sensory Summary Table ?Stim Site NR Onset (ms) Norm Onset (ms) Peak (ms) Norm Peak (ms) O-P Amp (?V) Norm O-P Amp Site1 Site2 Delta-0 (ms) Dist (cm) Kye (m/s) Norm Kye (m/s) Left Median Anti Sensory (2nd Digit) Wrist ? 2.9 3.6 <3.6 52.2 >10 Wrist 2nd Digit 2.9 14.0 48 Left Radial Anti Sensory (Thumb) Forearm ? 2.2 2.6 <3.1 14.0 Forearm Thumb 2.2 0.0 Left Ulnar Anti Sensory (5th Digit) Wrist ? 1.8 3.2 <3.7 43.5 >15.0 Wrist 5th Digit 1.8 14.0 78 Motor Summary Table ?Stim Site NR Onset (ms) Norm Onset (ms) O-P Amp (mV) Norm O-P Amp iAmp (mV) Amp (1st) (%) Site1 Site2 Delta-0 (ms) Dist (cm) Kye (m/s) Norm Kye (m/s) Left Median Motor (Abd Poll Brev) Wrist ? 3.5 <3.9 9.7 >4.5 12.4 100.0 Elbow Wrist 3.8 20.0 53 >45 Elbow ? 7.3 10.1 12.8 104.1 Left Ulnar Motor (Abd Dig Minimi) Wrist ? 2.7 <3.0 11.3 >5 13.8 100.0 B Elbow Wrist 3.1 16.5 53 >45 B Elbow ? 5.8 10.0 12.6 88.5 A Elbow B Elbow 1.8 10.0 56 >45 A Elbow ? 7.6 10.4 13.3 92.0 EMG ?Side Muscle Nerve Root Ins Act Fibs Psw Amp Dur Poly Recrt Int Pat Comment Left 1stDorInt Ulnar C8-T1 Nml Nml Nml Nml Nml 0 Nml Complete Left FlexCarRad Median C6-7 Nml Nml Nml Nml Nml 0 Nml Complete Left Biceps Musculocut C5-6 Nml Nml Nml Nml Nml 0 Nml Complete Left Triceps Radial C6-7-8 Nml Nml Nml Nml Nml 0 Nml Complete Left Deltoid Axillary C5-6 Nml Nml Nml Nml Nml 0 Nml Complete FINDINGS: All motor and sensory nerves tested showed normal latencies, amplitudes and conduction velocities. Concentric needle EMG was performed in selected muscles of the left upper extremity. Study did not reveal signs of electric abnormalities as shown in the table below. IMPRESSION: 1. This is a normal study. 2. There is no electrodiagnostic evidence for median neuropathy, ulnar neuropathy, brachial plexopathy, or cervical radiculopathy. Thank you for your kind referral. Giovana Friedman MD, REJI Board Certified, [place] Board of [employer] Medicine and Rehabilitation (ABPMR) Board Certified, [place] Board of Electrodiagnostic Medicine (ABEM) CODIN [id number] MTDD
== END 2023-11-03 14:31 | disposition home or self-care (01) ==
LOC: HO.NEURO 14:30
PROVIDERS: PCP Pediatrics; Visit Provider Physician Assistant
DX: R20.0 Anesthesia of skin (principal); R20.2 Paresthesia of skin
CPT/HCPCS: 95886; 95909

== ENCOUNTER → 2023-11-03 14:32 | Outpatient (BNV) | payer MEDICAID, SELFPAY | PROVIDERS: PCP Pediatrics; Visit Provider Physical Medicine & Rehabilitation | DX: M79.632 Pain in left forearm (principal); M25.532 Pain in left wrist; R20.2 Paresthesia of skin | CPT/HCPCS: 95886; 95909 ==

== ENCOUNTER 2023-12-16 14:32 | Outpatient (AMB) | payer MEDICAID, SELFPAY ==
--- NOTE | 2023-12-16 14:30 | A.OFFVIS_ITS ---
Intake Visit Reasons: F/U, EMG study results review Intake Note: Ping a 48 year old right hand dominant female who presents on the phone for a telehealth visit for her left hand EMG done on 11/03/23. Allergies Sulfa (Sulfonamide Antibiotics) Allergy (Unknown, Verified 12/16/23 14:30) Unknown HPI HPI F/U, EMG study results review: Details: 48 year old right hand dominant female who presents on the phone for a telehealth visit for her left hand EMG done on 11/03/23. She continues to experience intermittent n/t with weakness. [facility] Medical History (Updated 10/20/23 @ 00:01 by Arjun Salinas) Dyspnea on exertion Surgical History (Updated 10/18/23 @ 17:19 by Jordan Chavez MD) History of appendectomy Social History Alcohol intake: current Alcohol intake frequency: a few times a week Cigarette Packs Per Day: 1 Cigarettes Per Day: 20 Years Smoked: 27 years Current occupational status: employed Current occupation: [employer], right hand dominant Review of Systems Const All systems reviewed & are unremarkable except as noted in HPI and below Physical Exam Resp Effort & Inspection: normal respiratory effort and able to speak in complete sentences Telehealth Telehealth Telehealth Platform: Telephone Location of provider rendering services: practice address Location of patient: address on file Patient Identification confirmed using: Name, : Yes Telehealth method: voice only Patient verbally consented to treatment: Yes Patient verbally consented to billing insurance company: Yes Patient informed of any privacy concerns related to visit: Yes Minutes spent on Phone/Video with Pt.: 10 Results Reviewed Results Reviewed: emg 11/03/23 IMPRESSION: 1. This is a normal study. 2. There is no electrodiagnostic evidence for median neuropathy, ulnar neuropathy, brachial plexopathy, or cervical radiculopathy. Assessment & Plan Assessment & Plan (1) Paresthesia and pain of left extremity: Code(s): M79.609 - Pain in unspecified limb; R20.2 - Paresthesia of skin Category: Medical (2) Retained orthopedic hardware: Code(s): Z96.9 - Presence of functional implant, unspecified Category: Medical Plan We discussed options which include PT, NSAIDs and KRISTINE. I explained the benefits of PT since and explained KRISTINE may not resolve all her symptoms. We decided to pursue continued non op treatment with PT and if symptoms persist or worsen she can contact our office, otherwise. prn. Orders: Orders OT Evaluation and Treatment 12/16/23 M79.609 - Pain in unspecified limb, R20.2 - Paresthesia of skin, Z96.9 - Presence of functional implant, unspecified Coding Level of Care Code Tele Est Pt Level 3 (70599) Diagnoses Paresthesia and pain of left extremity M79.609; R20.2 Retained orthopedic hardware Z96.9
== END 2023-12-16 16:01 | disposition home or self-care (01) ==
PROVIDERS: PCP Pediatrics; Visit Provider Physician Assistant
DX: M79.609 Pain in unspecified limb (principal); R20.2 Paresthesia of skin; Z96.9 Presence of functional implant, unspecified
CPT/HCPCS: 99213

== ENCOUNTER → 2023-12-16 14:32 | Outpatient (BNVA) | payer MEDICAID, SELFPAY | PROVIDERS: PCP Pediatrics; Visit Provider Physician Assistant ==

== ENCOUNTER 2024-08-14 08:36 | Outpatient (REF) | payer MEDICAID, SELFPAY ==
--- OUTSIDE RECORDS SUMMARY | 2024-08-14 09:03 | XMS_ITS | Encounter Summary ---
Author Organization [employer] Address [address] [place] [address] Care Team Providers Care Teamsite Developer Name Role Phone Taiwo Bay MD Primary Care Prov ider Reason for Visit * Reason Onset Date Comments pap appt 07/26/2024 Encounter Details Date Type Department Care Team ([facility] st Contact Info) Description 07/26/2024 Telephone [facility] [address], [place] [phone] Taiwo Bay MD [address] [place] [address] pap appt Social History Tobacco Use Types Packs/Day Years Used Date Smoking Tobacco: Every Day Cigarettes 07 26.1 Started: 1994 Passive Smoke Exposure: Past Smokeless Tobacco: Never Alcohol Use Standard Drinks/Week Comments Not Currently 0 (1 standard drink = 0.6 oz pur e alcohol) Housing Stability Answer Date Recorded What is your housing situation today? I have jamila hernandes 05/15/[address] you li ve. Do you have problems with any of the following? None of the above 05/15/2024 Food Insecurity Answer Date Recorded Within the past 12 months, y ou worried that your food would run out before you got money to buy more: Never True 05/15/2024 Within the past 12 months,th e food you bought just didn't last and you didn't have enough money to get more: Never True Transportation Answer Date Recorded In the past 12 months, has l ack of transportation kept you from medical appts, meetings, work or from getting things needed for daily living? No 05/15/2024 Utilities Answer Date Recorded In the past 12 months, has t he electric, gas, oil or water company threatened to shut off services in your home? No 05/15/2024 Internet Access Answer Date Recorded Internet Access Q1 Yes 05/15/2024 Internet Access Q2 Not on file 05/15/2024 Comments Unknown Sex and Gender Information Value Date Recorded Sex Assigned at Female 04/26/2022 10:37 AM EDT Legal Sex Female 10:37 AM EDT Gender Identity Female 04/26/2022 10:37 AM EDT Sexual Orientation Straight 04/26/2022 10 :37 AM EDT documented as of this encounter Miscellaneous Notes * Telephone Encounter - Trisha Alonso MA - 07/26/2024 1:37 PM EST Called pt to schedule pap appt with female provider per pt. Pt didn't answer, lvm to call office back. documented in this encounter Plan of Treatment Not on file documented as of this encounter Visit Diagnoses Not on filedocumented in this encounter Care Teams Teamsite Developer Relationship Specialty Start Date End Date Taiwo Bay MD [address] [place] [id number] PCP - General Internal Medicine 07/10/24 documented as of this encounter
--- OUTSIDE RECORDS SUMMARY | 2024-08-14 09:03 | XMS_ITS | Encounter Summary ---
Author Organization [employer] Address [address] [place] [address] Care Team Providers Care Financial Services Assistant Name Role Phone Taiwo Bay MD Primary Care Prov ider Reason for Referral * Consultation (Routine) - Authorized Specialty Diagnoses / Procedures Referred By Contac t Referred To Contact Pain Medicine Diagnoses Chronic bilateral low back pain with right-sided sciatica Taiwo Bay MD [address] [place] [address] Phone: tel: fax: [facility] [address] [address] Phone: tel: fax: Referral ID Status Reason Start Date Expiration Date Visits Requested Visits Authorized [id number] Authorized Specialty Services Required 08/08/2024 08/08/2025 1 1 * PFT (Routine) - Authorized Specialty Diagnoses / Procedures Referred By Contac t Referred To Contact Diagnoses Simple chronic bronchitis ([facility]/HCC) Procedures Pulmonary Function Test Taiwo Bay MD [address] [place] [address] Phone: tel: fax: [address] Phone: tel: fax: Referral ID Status Reason Start Date Expiration Date V isits Requested Visits Authorized [id number] Authorized 08/08/2024 08/08/2025 1 1 Encounter Details Date Type Department Care Team (Late st Contact Info) Description 08/08/2024 11:30 AM EST Office Visit [facility] MED & PEDS [address] [place] [address] Taiwo Bay MD [address] [place] [address] Chronic bilateral low back pain with right-sided sciatica (Primary Dx); Dietary counseling; Exercise counseling; Simple chronic bronchitis (CMS/HCC) Social History Tobacco Use Types Packs/Day Years Used Date Smoking Tobacco: Every Day Cigarettes 1 .1 Started: 1994 Passive Smoke Exposure: Past Smokeless Tobacco: Never Alcohol Use Standard Drinks/Week Comments Not Currently 0 (1 standard drink = 0.6 oz pur e alcohol) Depression Answer Date Recorded Patient Health Questionnaire-9 Score 8 08/08/2024 Patient Health Questionnaire-9 Score 8 08/08/2024 Last PHQ-9: Questionnaire Data Not on file 0 08/08/2024 Housing Stability Answer Date Recorded What is [...] off services in your home? No 05/15/2024 Depression Answer Date Recorded Patient Health Questionnaire-2 Score 2 08/08/2024 Internet Access Answer Date Recorded Internet Access Q1 Yes 05/15/2024 Internet Access Q2 Not on file 05/15/2024 Comments Unknown Sex and Gender Information Value Date Recorded Sex Assigned at Female 04/26/2022 10:37 AM EDT Legal Sex Female 10:37 AM EDT Gender Identity Female 04/26/2022 10:37 AM EDT Sexual Orientation Straight 04/26/2022 10 :37 AM EDT documented as of this encounter Last Filed Vital Signs Vital Sign Reading Time Taken Comments Blood Pressure 126/90 08/08/2024 11:40 AM EST Pulse 78 08/08/2024 11:40 AM EST Temperature 36.4 ??C (97.6 ??F) 08/08/2024 11:[address] Respiratory Rate 20 08/08/2024 11:40 AM EST Oxygen Saturation 98% 08/08/2024 11:40 AM EST Inhaled Oxygen Concentration - - Weight 74.1 kg (163 lb 6.4 oz) 08/08/2024 11:40 AM EST Height 160 cm (5' 3 ) 08/08/2024 11:40 AM EST Body Mass Index 28.95 08/08/2024 11:40 AM EST documented in this encounter Progress Notes * Taiwo Ku MD - 08/08/2024 11:30 AM EST Subjective Patient ID: Ping Umana is a 48 y.o. female who presents for No chief complaint on file.. Asthma She complains of cough and frequent throat clearing. The cough is non- productive. Associated symptoms include dyspnea on exertion. Pertinent negatives include no fever. Her past medical history is significant for asthma. Back Pain This is a chronic problem. The pain is present in the lumbar spine. The quality of the pain is described as aching. The pain radiates to the right thigh. The pain is moderate. The symptoms are aggravated by position, standing and stress. Pertinent negatives include no bladder incontinence, bowel incontinence, fever, numbness, paresis, paresthesias, tingling or weakness. Review of Systems Constitutional: Negative for fever. Respiratory: Positive for cough. Cardiovascular: Positive for dyspnea on exertion. Gastrointestinal: Negative for bowel incontinence. Genitourinary: Negative for bladder incontinence. Musculoskeletal: Positive for back pain. Neurological: Negative for tingling, weakness, numbness and paresthesias. Objective Physical Exam Constitutional: Appearance: Normal appearance. HENT: Right Ear: Tympanic membrane, ear canal and external ear normal. There is no impacted cerumen. Left Ear: Tympanic membrane, ear canal and external ear normal. There is no impacted cerumen. Cardiovascular: Rate and Rhythm: Normal rate and regular rhythm. Heart sounds: No murmur heard. Pulmonary: Effort: Pulmonary effort is normal. No respiratory distress. Breath sounds: No stridor. No wheezing or rhonchi. Abdominal: General: Abdomen is flat. There is no distension. Palpations: There is no mass. Tenderness: There is no abdominal tenderness. Hernia: No hernia is present. Musculoskeletal: General: Normal range of motion. Cervical back: Normal range of motion. No rigidity or tenderness. Lymphadenopathy: Cervical: No cervical adenopathy. Neurological: General: No focal deficit present. Mental Status: She is alert and oriented to person, place, and time. Psychiatric: Mood and Affect: Mood normal. Behavior: Behavior normal. Assessment/Plan Problem List Items Addressed This Visit Chronic obstructive lung disease (CMS/HCC) Will start on albuterol rescue and spiriva, encouraged smoking cessation, will order PFT Relevant Orders Pulmonary Function Test Other Visit Diagnoses Chronic bilateral low back pain with right-sided sciatica - Primary Relevant Orders XR Knee 4+ Views Left XR Hip 2 or 3 Views Right XR Lumbar Spine 2-3 Views Dietary counseling Exercise counseling documented in this encounter Miscellaneous Notes * Assessment & Plan Note - Taiwo Ku MD - 08/08/2024 5:22 PM ESTAssociated Problem(s): Chronic obstructive lung disease (CMS/HCC) Will start on albuterol rescue and spiriva, encouraged smoking cessation, will order PFT documented in this encounter Plan of Treatment Scheduled Orders Name Type Priority Associated Diagnoses Orde r Schedule XR Knee 4+ Views Left Imaging Routine Chronic bilateral low back pain with right-sided sciatica Expected: 08/08/2024, Expires: 08/08/2025 XR Hip 2 or 3 Views Right Imaging Routine Chronic bilateral low back pain with right-sided sciatica Expected: 08/08/2024, Expires: 08/08/2025 XR Lumbar Spine 2-3 Views Imaging Routine Chronic bilateral low back pain with right-sided sciatica Expected: 08/08/2024, Expires: 08/08/2025 Pulmonary Function Test PFT Routine Simple chronic bronchitis (CMS/HCC) Expected: 08/08/2024, Expires: 02/05/2025 Scheduled Referrals Name Type Priority Associated Diagnoses Orde r Schedule Referral to Pain Medicine Outpatient Referral Routine Chronic bilateral low back pain with right-sided sciatica Expected: 08/08/2024 (Approximate), Expires: 08/08/2025 documented as of this encounter Visit Diagnoses Diagnosis Chronic bilateral low back pain with right-sided sciatica- Primary Dietary counseling Dietary surveillance and counseling Exercise counseling Simple chronic bronchitis (CMS/HCC) Simple chronic bronchitis documented in this encounter Additional Health Concerns Assessment Noted Time PHQ-9 Depression Total Score: 8 08/08/19 25 11:42 AM EST documented as of this encounter Care Teams Financial Services Assistant Relationship Specialty Start Date End Date Taiwo Bay MD [address] [place] [phone] PCP - General Internal Medicine 07/10/24 documented as of this encounter
--- OUTSIDE RECORDS SUMMARY | 2024-08-14 09:03 | XMS_ITS | Encounter Summary ---
Author Organization [employer] Address [address] [place] [address] Care Team Providers Care Manager Shift Name Role Phone Taiwo Bay MD Primary Care Prov ider Reason for Visit * Reason Onset Date Comments Chart Prep 08/07/2024 Encounter Details Date Type Department Care Team ([facility] st Contact Info) Description 08/07/2024 Telephone [facility] [address] [place], [place] [phone] Taiwo Bay MD [address] [place] [address] Chart Prep Social History Tobacco Use Types Packs/Day Years Used Date Smoking Tobacco: Every Day Cigarettes 1 30.1 Started: 1994 Passive Smoke Exposure: Past Smokeless [...] encounter Miscellaneous Notes * Telephone Encounter - Patti Hull MA - 08/07/2024 4:13 PM EST Chart Prep Labs: not done Images: not done Vaccines due: yes Referrals: pending appt Screenings: colonoscopy , pap smear , STI screening Overdue care gaps: Sbirt, PHQ-9, Oral Health, disability screening documented in this encounter Plan of Treatment Not on file documented as of this encounter Visit Diagnoses Not on filedocumented in this encounter Care Teams Manager Shift Relationship Specialty Start Date End Date Taiwo Bay MD [address] [place] [address] PCP - General Internal Medicine 07/10/24 documented as of this encounter
--- OUTSIDE RECORDS SUMMARY | 2024-08-14 09:03 | XMS_ITS | Clinical Summary ---
Author Organization [employer] Address [address] [place] [address] 7[address] [place] [address] Care Team Providers Care Concept Artist Name Role Phone Taiwo Bay MD Primary Care Prov ider Allergies Active Allergy Reactions Criticality Noted Date Comments Sulfamethoxazole-Trimethoprim Other 2023 Medications albuterol 108 (90 Base) MCG/ACT inhaler Inhale 2 puffs every 6 (six) hours if needed for wheezing. 18 g 11 08/08/2024 6 Active tiotropium (Spiriva HandiHaler) [address] 1 capsule (18 mcg) into inhaler and inhale in the morning. 30 capsule 11 08/08/2024 6 Active Active Problems Problem Noted Date Diagnosed Date Encounter for medical examination to establish c are 07/10/2024 Assessment & Plan (07/10/2024 12:15 AM EST): Last pcp visit 4 years ER visit on the past year: low iron/vomiting on october 2023 Hospitalization: ovarian cyst rupture s/p surgery, tylenol intoxication 2014 Pmhx- Pshx: ovarian cyst rupture s/p surgery on 1992, left arm surgery on 1987 All:- Meds Ferrous sulfate Menarche 14 LMP 03/27/24 A0 Screening for colon cancer 07/10/2024 Assessment & Plan (07/10/2024 12:16 AM EST): Will refer for colonoscopy Screening for cervical cancer 07/10/2024 Assessment & Plan (07/10/2024 12:16 AM EST): Will schedule for a pap smear Encounter for screening mamm ogram for malignant neoplasm of breast 07/10/2024 Assessment & Plan (07/10/2024 12:17 AM EST): Will order a breast mammogram Chronic obstructive lung disease 10/05/2023 Assessment & Plan (08/08/2024 5:22 PM EST): Will start on albuterol rescue and spiriva, encouraged smoking cessation, will order PFT Encounters Date Type Department Care Team Description 08/08/2024 11:30 AM EST Office Visit [facility] MED & PEDS [address] [place] [address] Taiwo Bay MD Chronic bilateral low back pain with right-sided sciatica (Primary Dx); Dietary counseling; Exercise counseling; Simple chronic bronchitis (CMS/HCC) 08/08/2024 Travel 08/07/2024 Telephone [facility] MED & PEDS [address] [place] [address] Taiwo Bay MD Chart Prep 08/01/2024 Patient Outreach [facility] P[facility] [address] [place] [address] Taiwo Bay MD Pre-visit Planning (SDOH negative, Tobacco screening negative. ) 07/26/2024 Telephone [facility] P[facility] [address] [place] [address] Taiwo Bay MD pap appt 07/10/2024 Telephone [employer] [address] [place] [address] Taiwo Bay MD 05/15/2024 10:45 AM EST Telemedicine [facility] MED & PEDS [address] [place] [address] Taiwo Bay MD Encounter for medical examination to establish care (Primary Dx); Screening for colon cancer; Screening for cervical cancer; Encounter for screening mammogram for malignant neoplasm of breast; Iron deficiency 05/15/2024 Telephone [facility] & PEDS [address] [place] [address] Trisha Alonso [place] 05/15/2024 Travel from Last 3 Months Family History Medical History Relation Name Comments Hypertension Brother Heart disease Father at 52 Lung cancer Maternal Grandmother Heart disease Mother Hypertension Mother Stomach cancer Mother's Brother Relation Name Status Comments Brother Father Maternal Grandmother Mother Mother's Brother Social History Tobacco Use Types Packs/Day Years Used Date Smoking Tobacco: Every Day Cigarettes 1 30.1 Started: 1994 Passive Smoke Exposure: Past Smokeless Tobacco: Never Tobacco Cessation:Ready to Q uit: Not Asked; Counseling Given: Not Answered Alcohol Use Standard Drinks/Week Comments Not Currently [...] Orientation Straight 04/26/2022 10 :37 AM EDT Last Filed Vital Signs Vital Sign Reading [...] Mass Index 28.95 08/08/2024 11:40 AM EST Plan of Treatment Health Maintenance Due Date Last Done Comments CT Colonography 1974 Colonoscopy 1974 Colorectal Cancer Screening 1974 FIT DNA/Cologuard 1974 FIT 1974 FOBT 1974 HIV Screening 1974 Lipid Panel 1974 Sigmoidoscopy 1974 Family Planning (PISQ) 1989 DTaP/Tdap/Td Vaccines (1 - Tdap) 1993 Hepatitis B Vaccines (1 of 3 - 19+ 3-dose series) 1993 Pneumococcal Vaccine: Pediatrics (0 to 5 Years) and At-Risk Patients (6 to 49) Years) (1 of 2 - PCV) 1993 Pap Smear 1995 Cervical Cancer Screening 2004 HPV/Cotest 2004 Mammogram 2014 COVID-19 Vaccine (3 - 2023-2 5 season) 2024 11/13/2020, 10/23/2020 Influenza Vaccine (#1) 2024 Lung Cancer Screening 2024 Zoster Vaccines (1 of 2) 2024 Tobacco Screening 07/10/2025 07/10/2024 SDOH Screening 08/01/2025 08/01/2024 Alcohol/Substance Use Screening 08/08/2025 08/08/2024 Depression Screening 08/08/2025 08/08/2024, 08/08/2024 RSV Patients and Patients Aged 60 years or older (1 - 1-dose 75+ series) 2049 Hepatitis C Screening Completed 05/06/2020 HIB Vaccines Aged Out No longer eligi ble based on patient's age to complete this topic HPV Vaccines Aged Out No longer eligi ble based on patient's age to complete this topic Hepatitis A Vaccines Aged Out No long er eligible based on patient's age to complete this topic IPV Vaccines Aged Out No longer eligi ble based on patient's age to complete this topic Meningococcal Vaccine Aged Out No madie wilfred eligible based on patient's age to complete this topic RSV under 20 months Aged Out No longe r eligible based on patient's age to complete this topic Rotavirus Vaccines Aged Out No longer eligible based on patient's age to complete this topic Procedures Procedure Name Priority Date/Time Associated Diagnosis Comments [facility]ABEL HISTORICAL HEPATITIS C ANTIBODY RFLX Routine 05/06/2020 11:30 AM EST from Last 3 Months or Most Recently Relevant to Health Maintenance Results * HEPATITIS C ANTIBODY RFLX (05/06/2020 11:30 AM EST) Hepatitis C Antibody Nonreactive Nonreactive [facility] Comment: Antibodies to HCV not detected; does not exclude early acute HCV infection. 05/06/2020 11:3 0 AM EST us Historical Provider MD HISTORICAL/NON ORDERABLE LABS Final Result [facility] [address] from Last 3 Months or Most Recently Relevant to Health Maintenance [place] [address] [place] [address] C3 Care Teams Concept Artist Relationship Specialty Start Date End Date Taiwo Bay MD [address] [place] [phone] PCP - General Internal Medicine 07/10/24
--- OUTSIDE RECORDS SUMMARY | 2024-08-14 09:03 | XMS_ITS | Encounter Summary ---
Author Organization [employer] Address 75 [facility] 7t [place] [address] Care Team Providers Care Family Support Coordinator Name Role Phone Taiwo Bay MD Primary Care Prov ider Encounter Details Date Type Department Care Team (Latest Contact Info) Description 08/08/2024 Travel Social History Tobacco Use Types Packs/Day Years [...] AM EDT documented as of this encounter Plan of Treatment Not on file documented as of this encounter Visit Diagnoses Not on filedocumented in this encounter Additional Health Concerns Assessment Noted Time PHQ-9 Depression Total Score: 8 08/08/19 11:42 AM EST documented as of this encounter Care Teams Family Support Coordinator Relationship Specialty Start Date End Date Taiwo Bay MD [address] [place] [phone] PCP - General Internal Medicine 07/10/24 documented as of this encounter
--- OUTSIDE RECORDS SUMMARY | 2024-08-14 09:03 | XMS_ITS | Encounter Summary ---
Author Organization [employer] Address 75 [facility] [address] [place] [address] Care Team Providers Care Seo Expert Name Role Phone Taiwo Bay MD Primary Care Prov ider Reason for Visit * Reason Comments Pre-visit Planning SDOH negative, Tobac co screening negative. Encounter Details Date Type Department Care Team ([facility] Contact Info) Description 08/01/2024 Patient Outreach [facility] MED & PEDS [address] [place] [address] Taiwo Bay MD [address] [place] [address] Pre-visit Planning (SDOH negative, Tobacco screening negative. ) Social History Tobacco Use Types Packs/Day Years [...] AM EDT documented as of this encounter Progress Notes * Cynthia Giles - 08/01/2024 11:46 AM EST CC Cynthia Bethea placed successful outbound call to patient for pre-visit planning. Patient name and confirmed. Patient confirms appt date and time, and has transportation arrangements. Biggest concern for appointment at this time is no concerns. Appropriate screenings completed in anticipation ofappointment. documented in this encounter Plan of Treatment Not on file documented as of this encounter Visit Diagnoses Not on filedocumented in this encounter Care Teams Seo Expert Relationship Specialty Start Date End Date Taiwo Bay MD [address] [place] [id number] PCP - General Internal Medicine 07/10/24 documented as of this encounter
[2024-08-14 14:16] LABS: MANUAL DIFF FLAG NO
[2024-08-14 14:24] LABS: Basophils Absolute Auto 0.1 X10*3/uL (0.0-0.2); Basophils Percent Auto 1.1 % (0-2); Eosinophils Absolute Auto 0.1 X10*3/uL (0.0-0.4); Eosinophils Percent Auto 1.7 % (0-4); Hematocrit 47.7 % (37.0-47.0); Hemoglobin 15.8 g/dl (12.0-16.0); Imm Gran Abs Auto 0.03 X10*3/uL (0.00-0.03); Imm Gran Pct Auto 0.4 % (0.0-0.4); Lymphocytes Absolute Auto 1.7 X10*3/uL (1.2-4.9); Lymphocytes Percent Auto 22.9 % (20-40); Mean Corpuscular HGB Conc 33.1 g/dl (31.0-35.0); Mean Corpuscular Hemoglobin 31.7 pg (27.0-33.0); Mean Corpuscular Volume 95.6 fL (80.0-98.0); Mean Platelet Volume 10.3 fL (9.4-12.3); Monocytes Absolute Auto 0.8 X10*3/uL (0.1-1.2); Neutrophils Absolute Auto 4.7 x10*3/uL (2.0-8.3); Neutrophils Percent Auto 62.9 % (45-73); Platelet Count 295 X10*3/uL (160-400); Red Blood Count 4.99 X10*6/uL (4.20-5.50); Red Cell Distribution Width 15.2 % (11.0-16.0); White Blood Count 7.5 X10*3/uL (4.8-10.8)
[2024-08-14 14:45] LABS: Alanine Aminotransferase 49 U/L (0-31); Albumin Level 4.6 g/dL (3.5-5.0); Alkaline Phosphatase 107 U/L (39-117); Anion Gap 15 (12-20); Aspartate Amino Transferase 40 U/L (5-31); Bilirubin Total 0.6 mg/dL (0.0-1.0); Blood Urea Nitrogen 8 mg/dL (9-16); Calcium 9.4 mg/dL (8.4-10.2); Carbon Dioxide 24 mmol/L (22-29); Chloride 103 mmol/L (96-108); Cholesterol 402 mg/dL (<200); Estimated Glomerular Filt Rate > 60; Glucose Random 105 mg/dL (60-115); HDL Cholesterol 47 mg/dL (>40); Iron 200 mcg/dL (30-160); LDL Cholesterol Calculated 316 mg/dL (<100); Percent Iron Saturation 55 % (15-50); Sodium 138 mmol/L (135-145); Total Iron Binding Capacity 365 mcg/dL (228-428); Total Protein 8.1 g/dL (6.5-8.0); Triglycerides 196 mg/dL (<150); Unsaturated Iron Binding 165 ug/dL
[2024-08-14 15:23] LABS: Folate 5.9 ng/mL (> or = 4.0); Vitamin B12 299 pg/mL (200-900)
== END 2024-08-14 08:37 | disposition home or self-care (01) ==
LOC: HO.CHCLDS 08:36
PROVIDERS: Visit Provider Internal Medicine
DX: E61.1 Iron deficiency (principal)
CPT/HCPCS: 36415; 80053; 80061; 82607; 82746; 83540; 85025

== ENCOUNTER 2024-08-14 11:08 | Outpatient (REF) | payer MEDICAID, SELFPAY ==
--- NOTE | ~2024-08-14 | XR_ITS ---
CLINICAL HISTORY: left knee pain Radiographs of the left knee, 4 views, 5 images Comparison: None Findings: There is no fracture or dislocation. Mild medial tibiofemoral compartment joint space narrowing with trace osteophytosis. Small suprapatellar enthesophyte. Bone mineralization is normal. No knee joint effusion. No soft tissue swelling. Impression: No acute findings. Mild degenerative change. This document has been electronically signed by: Mary Blackmon MD on 08/14/2024 21:36:55
--- NOTE | ~2024-08-14 | XR_ITS ---
CLINICAL HISTORY: chronic back pain Lumbar spine three views Comparison: None Findings: No acute fracture or dislocation is demonstrated. Posterior alignment is normal throughout. Moderate lower degenerative change noted. No radiopaque foreign bodies noted. Impression: No acute processes This document has been electronically signed by: Sahil Good MD on 08/14/2024 19:08:17
--- NOTE | ~2024-08-14 | XR_ITS ---
CLINICAL HISTORY: right hip pain Radiographs of the right hip, 2 views Comparison: CR - XR LUMBAR SPINE 2-3V - 08/14/24 11:25 EST Findings: No fracture or dislocation. No degenerative change of the right hip. Moderate degenerative change of the right sacroiliac joint and moderate to severe lower lumbar spine degenerative change. Bone mineralization is normal. No soft tissue swelling. Impression: No acute findings. This document has been electronically signed by: Mary Blackmon MD on 08/14/2024 21:36:43
== END 2024-08-14 11:09 | disposition home or self-care (01) ==
LOC: HO.XRAY 11:08
PROVIDERS: PCP Internal Medicine; Visit Provider Internal Medicine
DX: M54.41 Lumbago with sciatica, right side (principal); G89.29 Other chronic pain
CPT/HCPCS: 72100; 73502; 73564

== ENCOUNTER → 2024-08-14 11:11 | Outpatient (BNV) | payer MEDICAID, SELFPAY | PROVIDERS: PCP Internal Medicine; Visit Provider Radiology Diagnostic Radiology | DX: M25.551 Pain in right hip (principal); M25.562 Pain in left knee; M54.59 Other low back pain | CPT/HCPCS: 72100; 73502; 73564 ==

== ENCOUNTER 2024-09-13 09:43 | Outpatient (REF) | payer MEDICAID, SELFPAY ==
--- NOTE | 2024-09-13 09:48 | PFT_ITS ---
Flows: FEV1: 86 % of predicted at 2.47 L FVC: 93 % of predicted at 3.34 L FEV1/FVC: 74 % Bronchodilator response: Absent Volumes: Total lung capacity: 91 % of predicted at 4.91 L Residual volume: 101 % of predicted at 1.58 L Slow vital capacity: 87 % of predicted at 3.34 L Expiratory reserve volume: 16 % of predicted at 0.17 L Diffusion capacity: Mildly decreased, corrects to normal after adjustment for alveolar ventilation. Impression: No obstructive or restrictive ventilatory defect. No bronchodilator response. Decreased expiratory reserve volume suggests extrathoracic restriction likely secondary to abdominal obesity. Decreased diffusion capacity suggests emphysema. MTDD
[2024-09-13 10:33] VITALS: PULSE 72; O2SAT 100
--- OUTSIDE RECORDS SUMMARY | 2024-09-13 10:47 | XMS_ITS | Encounter Summary ---
Author Organization [employer] Address [address] [facility] [address] [place] [address] Care Team Providers Care Flexographic Printing Machinist Name Role Phone Taiwo Bay MD Primary Care Prov ider Reason for Visit * Reason Onset Date Comments pap appt 07/26/2024 Encounter Details Date Type Department Care Team ([facility] Contact Info) Description 07/26/2024 Telephone [facility] MED & PEDS [address] [place], [place] [phone] Taiwo Bay MD [address] [place] [address] pap appt Social History Tobacco Use Types Packs/Day Years Used Date Smoking Tobacco: Every Day Cigarettes 1 30.2 Started: 1994 Passive Smoke Exposure: Past Smokeless [...] encounter Miscellaneous Notes * Telephone Encounter - Radha Greenberg - 08/30/2024 9:31 AM EST Tc from pt returning call * Telephone Encounter - Trisha Alonso MA - 07/26/2024 1:37 PM EST Called pt to schedule pap appt with female provider per pt. Pt didn't answer, lvm to call office back. documented in this encounter Plan of Treatment Upcoming Encounters Date Type Department Care Team ([facility] st Contact Info) Description 11/13/2024 2:15 PM EDT Procedure Visit [facility] MED & PEDS [address] [place] [address] Taiwo Bay MD [address] [place] [address] documented as of this encounter Visit Diagnoses Not on filedocumented in this encounter Care Teams Flexographic Printing Machinist Relationship Specialty Start Date End Date Taiwo Bay MD [address] [place] [phone] PCP - General Internal Medicine 07/10/24 documented as of this encounter
--- OUTSIDE RECORDS SUMMARY | 2024-09-13 10:47 | XMS_ITS | Clinical Summary ---
Author Organization [employer] Address [address] [place] [address] 7t [place] [address] Care Team Providers Care Hospital Superintendent Name Role Phone Taiwo Bay MD Primary [...] Encounters Date Type Department Care Team Description 09/07/2024 Population Health Risk Score [facility] () Department [address] [place] [phone] Provider, Population Health Generic 08/08/2024 11:30 AM EST Office Visit [facility] [address] [place] [address] Taiwo Bay MD Chronic bilateral low back pain with right-sided sciatica (Primary Dx); Dietary counseling; Exercise counseling; Simple chronic bronchitis (CMS/HCC) 08/08/2024 Travel 08/07/2024 Telephone [facility] [address] [place] [address] Taiwo Bay MD Chart Prep 08/01/2024 Patient Outreach [facility] [address] [place] [address] Taiwo Bay MD Pre-visit Planning (SDOH negative, Tobacco screening negative. ) 07/26/2024 Telephone [facility] [address] [place] [address] Taiwo Bay MD pap appt 07/10/2024 Telephone [facility] [employer] [address] [place] [phone] Taiwo Bay MD from Last 3 Months Family History Medical [...] 08/08/2024 11:40 AM EST Plan of Treatment Upcoming Encounters Date Type Department Care Team (Late st Contact Info) Description 11/13/2024 2:15 PM EDT Procedure Visit [facility] [address] [place], [place] [phone] Taiwo Bay MD [address] [place] [address] Health Maintenance Due Date Last Done Comments CT Colonography 1974 Colonoscopy 1974 Colorectal Cancer Screening 1974 FIT DNA/Cologuard 1974 FIT 1974 FOBT 1974 HIV Screening 1974 Sigmoidoscopy 1974 Family Planning (PISQ) 1989 DTaP/Tdap/Td Vaccines (1 - Tdap) 1993 Hepatitis B Vaccines (1 of 3 - 19+ 3-dose series) 1993 Pneumococcal Vaccine: 50+ Years (1 of 2 - PCV) 1993 Pap Smear 1995 Cervical Cancer Screening 2004 HPV/Cotest 2004 Mammogram 2014 COVID-19 Vaccine (3 - 2023-2 5 season) 2024 11/13/2020, 10/23/2020 Influenza Vaccine (#1) 2024 Lung Cancer Screening 2024 Zoster Vaccines (1 of 2) 2024 Tobacco Screening 07/10/2025 07/10/2024 SDOH Screening 08/01/2025 08/01/2024 Alcohol/Substance Use Screening 08/08/2025 08/08/2024 Depression Screening 08/08/2025 08/08/2024, 08/08/2024 Lipid Panel 08/14/2029 08/14/2024 RSV Patients and Patients Aged 60 years [...] Procedure Name Priority Date/Time Associated Diagnosis Comments XR HIP 2 OR 3 VIEWS RIGHT Routine 08/14/2024 9:36 PM EST Chronic bilateral low back pain with right-sided sciatica XR KNEE 4+ VIEWS LEFT Routine 08/14/2024 9:36 PM EST Chronic bilateral low back pain with right-sided sciatica XR LUMBAR SPINE 2-3 VIEWS Routine 08/14/2024 7:08 PM EST Chronic bilateral low back pain with right-sided sciatica VITAMIN B12/FOLATE, SERUM PANEL Routine 08/14/2024 8:37 AM EST Iron deficiency LIPID PANEL, STANDARD Routine 08/14/2024 8:37 AM EST Iron deficiency COMPREHENSIVE METABOLIC PANEL Routine 08/14/2024 8:37 AM EST Iron deficiency IRON AND TOTAL IRON BINDING CAPACITY Routine 08/14/2024 8:37 AM EST Iron deficiency CBC WITH AUTO DIFFERENTIAL Routine 08/14/2024 8:37 AM EST Iron deficiency ZZZ HISTORICAL HEPATITIS C ANTIBODY RFLX Routine 05/06/2020 11:30 AM EST from Last 3 Months or Most Recently Relevant to Health Maintenance Results * XR Knee 4+ Views Left (08/14/2024 9:36 PM EST) Anatomical Region Laterality Modality Lower Extremities, Knee Left Radiogra phic Imaging 08/14/2024 9:36 PM EST Narrative 08/14/2024 9:38 PM EST ? [facility] ?[address] ?[place] [address] ?XRay Report ? Signed ? Patient: Lyndsay,Ping ?MR#: [id number] ?? 8092 ? : 1975 ?Acct:[id number] ? Age/Sex: 48 / F ?ADM Date: 08/14/24 ? Loc: HO.XRAY ? Attending Dr: Taiwo Ku MD ? Ordering Physician: Taiwo Bay MD ?? Date of Service: 08/14/24 ?? Procedure(s): XR knee LT 4V ?? Accession Number(s): [id number] ? cc: Taiwo Bay MD ? CLINICAL HISTORY: left knee pain ? Radiographs of the left knee, 4 views, 5 images ? Comparison: None ? Findings: ?? There is no fracture or dislocation. Mild medial tibiofemoral compartment ?? joint space narrowing with trace osteophytosis. Small suprapatellar ?? enthesophyte. Bone mineralization is normal. ?? No knee joint effusion. No soft tissue swelling. ? Impression: ?? No acute findings. Mild degenerative change. ? This document has been electronically signed by: Mary Blackmon MD ?? on 08/14/2024 21:36:55 ? Dictated By: ?Mary Townsend MD ? Signed By: ?<Electronically signed by Mary Townsend MD in OV> ? 08/14/242137 ? DD/ 35 ? TD/TT: 08/14/242135 ? [employer]: ? Procedure Note Celena Chang - 08/14/2024 [facility] [address] [place] [address] XRay Report Signed Patient: Ping UmanaMR#: [id number] : 1975Acct:[id number] Age/Sex: 48 / FADM Date: 08/14/24 Loc: HO.XRAY Attending Dr: Taiwo Ku MD Ordering Physician: Taiwo Bay MD Date of Service: 08/14/24 Procedure(s): XR knee LT 4V Accession Number(s): [id number] cc: Taiwo Bay MD CLINICAL HISTORY: left knee pain Radiographs of the left knee, 4 views, 5 images Comparison: None Findings: There is no fracture or dislocation. Mild medial tibiofemoral compartment joint space narrowing with trace osteophytosis. Small suprapatellar enthesophyte. Bone mineralization is normal. No knee joint effusion. No soft tissue swelling. Impression: No acute findings. Mild degenerative change. This document has been electronically signed by: Mary Blackmon MD on 08/14/2024 21:36:55 Dictated By: Mary Townsend MD Signed By: <Electronically signed by Mary Townsend MD in OV> 08/14/242137 DD/ 35 TD/TT: 08/14/242135 [employer]: us Taiwo Ku MD IMG XR PROCEDURES Edited Result - Final * XR Hip 2 or 3 Views Right (08/14/2024 9:36 PM EST) Anatomical Region Laterality Modality Lower Extremities, Hip Right Radiograp hic Imaging 08/14/2024 9:36 PM EST Narrative 08/14/2024 9:38 PM EST ? [facility] ?[address] ?[place] [address] ?XRay Report ? Signed ? Patient: Lyndsay,Bobbijean ?MR#: [id number] ?? 8092 ? : 1975 ?Acct:[id number] ? Age/Sex: 48 / F ?ADM Date: 02/18/25 ? Loc: HO.XRAY ? Attending Dr: Taiwo Ku MD ? Ordering Physician: Taiwo Bay MD ?? Date of Service: 08/14/24 ?? Procedure(s): XR hip RT min 2V ?? Accession Number(s): [id number] ? cc: Taiwo Bay MD ? CLINICAL HISTORY: right hip pain ? Radiographs of the right hip, 2 views ? Comparison: CR - XR LUMBAR SPINE 2-3V - 08/14/24 11:25 EST ? Findings: ?? No fracture or dislocation. No degenerative change of the right hip. ?? Moderate degenerative change of the right sacroiliac joint and moderate to ?? severe lower lumbar spine degenerative change. Bone mineralization is ?? normal. No soft tissue swelling. ? Impression: ?? No acute findings. ? This document has been electronically signed by: Mary Blackmon MD ?? on 08/14/2024 21:36:43 ? Dictated By: ?Mary Townsend MD ? Signed By: ?<Electronically signed by Mary Townsend MD in OV> ? 08/14/248 ? DD/ 35 ? TD/TT: 08/14/242135 ? [employer]: ? Procedure Note Donpashater, Image - 08/14/2024 [place] [address] XRay Report Signed Patient: Ping UmanaMR#: [id number] : 1975Acct:[id number] Age/Sex: 48 / FADM Date: 08/14/24 Loc: HO.IVAN Attending Dr: Taiwo Ku MD Ordering Physician: Taiwo Bay MD Date of Service: 08/14/24 Procedure(s): XR hip RT min 2V Accession Number(s): [id number] cc: Taiwo Bay MD CLINICAL HISTORY: right hip pain Radiographs of the right hip, 2 views Comparison: CR - XR LUMBAR SPINE 2-3V - 08/14/24 11:25 EST Findings: No fracture or dislocation. No degenerative change of the right hip. Moderate degenerative change of the right sacroiliac joint and moderate to severe lower lumbar spine degenerative change. Bone mineralization is normal. No soft tissue swelling. Impression: No acute findings. This document has been electronically signed by: Mary Blackmon MD on 08/14/2024 21:36:43 Dictated By: Mary Townsend MD Signed By: <Electronically signed by Mary Townsend MD in OV> 08/14/242137 DD/ 35 TD/TT: 08/14/242135 [employer]: us Taiwo Ku MD IMG XR PROCEDURES Edited Result - Final * XR Lumbar Spine 2-3 Views (08/14/2024 7:08 PM EST) Anatomical Region Laterality Modality Spine, L-spine Radiographic Joan ging 08/14/2024 7:08 PM EST Narrative 08/14/2024 7:09 PM EST ? [facility] ?[address] ?[place] [address] ?XRay Report ? Signed ? Patient: Lyndsay,Bobbijean ?MR#: [id number] ?? 8092 ? : 1975 ?Acct:[id number] ? Age/Sex: 48 / F ?ADM Date: 08/14/24 ? Loc: HO.XRAY ? Attending Dr: Taiwo Ku MD ? Ordering Physician: Taiwo Bay MD ?? Date of Service: 08/14/24 ?? Procedure(s): XR lumbar spine 2-3V ?? Accession Number(s): [id number] ? cc: Taiwo Bay MD ? CLINICAL HISTORY: chronic back pain ? Lumbar spine three views ? Comparison: None ? Findings: ? No acute fracture or dislocation is demonstrated. ?? Posterior alignment is normal throughout. ?? Moderate lower degenerative change noted. ?? No radiopaque foreign bodies noted. ? Impression: ? No acute processes ? This document has been electronically signed by: Sahil Good MD on ?? 08/14/2024 19:08:17 ? Dictated By: ?Sahil Good MD ? Signed By: ?<Electronically signed by Sahil Good MD in OV> ? 08/14/24 1909 ? DD/ 1908 ? TD/TT: 08/14/241907 ? [employer]: ? Procedure Note Bernardo, Celena - 08/14/[address] [place] [address] XRay Report Signed Patient: Ping UmanaMR#: [id number] : 1975Acct:[id number] Age/Sex: 48 / FADM Date: 08/14/24 Loc: HO.XRAY Attending Dr: Taiwo Ku MD Ordering Physician: Taiwo Bay MD Date of Service: 08/14/24 Procedure(s): XR lumbar spine 2-3V Accession Number(s): [id number] cc: Taiwo Bay MD CLINICAL HISTORY: chronic back pain Lumbar spine three views Comparison: None Findings: No acute fracture or dislocation is demonstrated. Posterior alignment is normal throughout. Moderate lower degenerative change noted. No radiopaque foreign bodies noted. Impression: No acute processes This document has been electronically signed by: Sahil Good MD on 08/14/2024 19:08:17 Dictated By: Sahil Good MD Signed By: <Electronically signed by Sahil Good MD in OV> 08/14/241908 DD/ 07 TD/TT: 08/14/241907 [employer]: Taiwo Ku MD IMG XR PROCEDURES Edited Result - Final * Vitamin B12 (Cobalamin) and Folate Panel, Serum (08/14/2024 8:37 AM EST) Vitamin B12 299 200 - 900 pg/mL [facility] Comment:NORMAL 200-900 PG/ML INDETERMINATE 160-199 PG/ML DEFICIENT < 160 PG/ML Folate 5.9 > or = 4.0 ng/mL [facility] Comment:Reference Values:> o r = 4.0 ng/mL< 4.0 ng/mL suggests folate deficiency Methotrexate, aminopterin and folinic acid(leucovorin) are chemotherapeutic agents whose molecularstructures are similar to folate; therefore, the Architectfolate assay cannot be used for patients using these drugs. Blood Venous blood specimen / Unknown 08/14/2024 8:37 AM EST 08/14/2024 2:14 PM EST us Taiwo Ku MD LAB BLOOD ORDERABL ES Final Result [facility] [address] [place], [place] [phone] * (ABNORMAL) CBC auto differential (08/14/2024 8:37 AM EST) White Blood Count 7.5 4.8 - 10.8 X10*3/uL [facility] Red Blood Count 4.99 4.20 - 5.50 X10*6/uL [facility] Hemoglobin 15.8 12.0 - 16.0 g/dl [facility] Hematocrit 47.7(H) 37.0 - 47.0 % [facility] Mean Corpuscular Volume 95.6 80.0 - 98.0 fL [facility] Mean Corpuscular Hemoglobin 31.7 27.0 - 33.0 pg [facility] Mean Corpuscular HGB Conc 33.1 31.0 - 35.0 g/dl [facility] Red Cell Distribution Width 15.2 11.0 - 16.0 % [facility] Platelet Count 295 160 - 400 X10*3/uL [facility] Mean Platelet Volume 10.3 9.4 - 12.3 fL [facility] Neutrophils Percent Auto 62.9 45 - 73 % [facility] Imm Gran Pct Auto 0.4 0.0 - 0.4 % [facility] Lymphocytes Percent Auto 22.9 20 - 40 % [facility] Monocytes Percent Auto 11.0 2 - 11 % [facility] Eosinophils Percent Auto 1.7 0 - 4 % [facility] Basophils Percent Auto 1.1 0 - 2 % [facility] NRBC Pct Auto 0.0 0.0 - 0.2 /100WBC [facility] Neutrophils Absolute Auto 4.7 2.0 - 8.3 x10*3/uL [facility] Imm Gran Abs Auto 0.03 0.00 - 0.03 X10*3/uL [facility] Lymphocytes Absolute Auto 1.7 1.2 - 4.9 X10*3/uL [facility] Monocytes Absolute Auto 0.8 0.1 - 1.2 X10*3/uL [facility] Eosinophils Absolute Auto 0.1 0.0 - 0.4 X10*3/uL [facility] Basophils Absolute Auto 0.1 0.0 - 0.2 X10*3/uL [facility] NRBC Abs Auto 0.000 0.0 - 0.012 X10*3/uL [facility] Blood Venous blood specimen / Unknown 08/14/2024 8:37 AM EST 08/14/2024 2:12 PM EST Taiwo Ku MD LAB BLOOD ORDERABL ES Final Result Performing Organization Address City/[facility]/ZIP Co de Phone Number [facility] [address] [place] [phone] * (ABNORMAL) Iron And Total Iron Binding Capacity (08/14/2024 8:37 AM EST) Iron 200(H) 30 - 160 mcg/dL [facility] Total Iron Binding Capacity 365 228 - 428 mcg/dL [facility] Percent Iron Saturation 55(H) 15 - 50 % [facility] Unsaturated Iron Binding 165 ug/dL [facility] Blood Venous blood specimen / Unknown 08/14/2024 8:37 AM EST 08/14/2024 2:14 PM EST Taiwo Ku MD LAB BLOOD ORDERABL ES Final Result Performing Organization Address City/[facility]/ZIP Co de Phone Number [facility] [address] [place] [phone] * (ABNORMAL) Lipid Panel, Standard (08/14/2024 8:37 AM EST) Triglycerides 196(H) <150 mg/dL [facility] Comment:Desirable Triglyceri de: less than 150 mg/dLBorderline High Triglyceride 150-199 mg/dLHigh Triglyceride: 200-499 mg/dLVery High Triglyceride: greater than or equal to 5OO mg/dL Cholesterol 402(H) <200 mg/dL [facility] Comment:Desirable Cholestero l: less than 200 mg/dLBorderline High Cholesterol: 200-239 mg/dLHigh Cholesterol: greater than 239 mg/dL LDL Cholesterol Calculated 316(H) <100 mg/dL [facility] Comment:Desirable LDL: less than 100 mg/dLNear Optimal/Above Optimal LDL: 110- 129 mg/dLBorderline High LDL: 130-159 mg/dLHigh LDL: 160-189 mg/dLVery High LDL: greater than or equal to 190 mg/dL HDL Cholesterol 47 >40 mg/dL [facility] Comment:Desirable HDL: great er than 40 mg/dL Note: This HDL assay may give artificially low results in patients with liver disease. Blood Venous blood specimen / Unknown 08/14/2024 8:37 AM EST 08/14/2024 2:14 PM EST us Taiwo Ku MD LAB BLOOD ORDERABL ES Final Result [facility] [address] [place] [phone] * (ABNORMAL) Comprehensive Metabolic Panel (08/14/2024 8:37 AM EST) Sodium 138 135 - 145 mmol/L [facility] Potassium 4.0 3.3 - 5.1 mmol/L [facility] Chloride 103 96 - 108 mmol/L [facility] Carbon Dioxide 24 22 - 29 mmol/L [facility] Anion Gap 15 12 - 20 [facility] Urea Nitrogen (BUN) 8(L) 9 - 16 mg/dL [facility] Creatinine, Serum 0.63 0.5 - 1.4 mg/dL [facility] Estimated Glomerular Filt Rate >60 [facility] Comment:Chronic Kidney Disea se: Estimated GFR < 60 mL/min/1.13q2Etlszh Kidney Disease: Estimated GFR < 15 mL/min/1.73m2 Glucose 105 60 - 115 mg/dL [facility] Calcium 9.4 8.4 - 10.2 mg/dL [facility] Bilirubin, Total 0.6 0.0 - 1.0 mg/dL [facility] Aspartate Amino Transferase 40(H) 5 - 31 U/L [facility] Alanine Aminotransferase 49(H) 0 - 31 U/L [facility] Total Protein 8.1(H) 6.5 - 8.0 g/dL [facility] Albumin Level 4.6 3.5 - 5.0 g/dL [facility] Alkaline Phosphatase 107 39 - 117 U/L [facility] Blood Venous blood specimen / Unknown 08/14/2024 8:37 AM EST 08/14/2024 2:14 PM EST Taiwo Ku MD LAB BLOOD ORDERABL ES Final Result Performing Organization Address [facility]/ZIP Co de Phone Number [facility] [address] [place] [phone] * HEPATITIS C ANTIBODY RFLX (05/06/2020 11:30 AM EST) Hepatitis C Antibody Nonreactive Nonreactive [facility] Comment: Antibodies to HCV not detected; does not exclude early acute HCV infection. 05/06/2020 11:3 0 AM EST Historical Provider HISTORICAL/NON ORDERABLE LABS Final Result Performing Organization Address City/[facility]/ZIP Co de Phone Number [facility] [address] from Last 3 Months or Most Recently Relevant to Health Maintenance Insurance [facility] C3 Care Teams Hospital Superintendent Relationship Specialty Start Date End Date Taiwo Bay MD [address] [place] [phone] PCP - General Internal Medicine 07/10/24
--- OUTSIDE RECORDS SUMMARY | 2024-09-13 10:47 | XMS_ITS | Encounter Summary ---
Author Organization [employer] Address [address] [facility] [address] [place] [address] Care Team Providers Care Soap Tender Name Role Phone Taiwo Bay MD Primary Care Prov ider Encounter Details Date Type Department Care Team ([facility] st Contact Info) Description 09/07/2024 Population Health Risk Score [facility] (C[facility]) Department [address] [phone] Provider, Population Health Generic Social History Tobacco Use Types Packs/Day Years [...] as of this encounter Plan of Treatment Upcoming Encounters Date Type Department Care Team (Late st Contact Info) Description 11/13/2024 2:15 PM EDT Procedure Visit [facility] [address] [place] [address] Taiwo Bay MD [address] [place] [address] documented as of this encounter Visit Diagnoses Not on filedocumented in this encounter Additional Health Concerns Assessment Noted Time PHQ-9 Depression Total Score: 8 08/08/19 25 11:42 AM EST documented as of this encounter Care Teams Soap Tender Relationship Specialty Start Date End Date Taiwo Bay MD [address] [place] [address] PCP - General Internal Medicine 07/10/24 documented as of this encounter
== END 2024-09-13 09:44 | disposition home or self-care (01) ==
LOC: HO.RESP 09:43
PROVIDERS: PCP Internal Medicine; Visit Provider Internal Medicine
DX: J41.0 Simple chronic bronchitis (principal)
CPT/HCPCS: 94010; 94640; 94727; 94729

== ENCOUNTER → 2024-09-13 09:48 | Outpatient (BNV) | payer MEDICAID, SELFPAY | PROVIDERS: PCP Internal Medicine; Visit Provider Internal Medicine Pulmonary Disease | DX: J41.0 Simple chronic bronchitis (principal) | CPT/HCPCS: 94060; 94727; 94729 ==

== ENCOUNTER 2024-11-13 16:19 | Outpatient (REF) | payer MEDICAID, SELFPAY ==
--- OUTSIDE RECORDS SUMMARY | 2024-11-13 16:45 | XMS_ITS | Clinical Summary ---
Author Organization [employer] Address [address] [facility] [address] [place] [address] Care Team Providers Care Supervisor Cartography Name Role Phone Taiwo Bay MD Primary [...] and inhale in the morning. 30 capsule 08/08/2024 6 Active atorvastatin (Lipitor) 40 MG tablet Take 1 tablet (40 mg) by mouth Once per day. 30 tablet 11 10/01/2024 6 Active Active Problems Problem Noted Date Diagnosed Date Cervical cancer screening 11/13/2024 Assessment & Plan (11/13/2024 2:47 PM EDT): Disussed with patient procedure. I was assisted with disability counselor Ms. Trisha Alonso. Procedure was performed without any complications. Will call back to discuss results Mixed hyperlipidemia 10/01/2024 Assessment & Plan (10/01/2024 10:43 AM EDT): Will start on atorvastatin 40mg, encouraged smoking cessation, will follow up in 2 months with new labs Encounter for medical examination to establish c [...] Encounters Date Type Department Care Team Description 11/13/2024 2:15 PM EDT Procedure Visit [facility] [address] [place] [address] Taiwo Bay MD Cervical cancer screening; Vaginal discharge; Frequent urination 11/13/2024 Travel 10/01/2024 9:30 AM EDT Telemedicine [facility] [address] [place] [address] Taiwo Bay MD Mixed hyperlipidemia (Primary Dx) 09/18/2024 Telephone [facility] [address] [place] [address] Taiwo Bay MD 09/07/2024 Population Health Risk Score [facility] Department [address] [place] [id number] Provider, Population Health Generic from Last 3 Months Family History Medical History Relation Name Comments Hypertension Brother Heart disease Father at 52 Lung cancer Maternal Grandmother Heart disease Mother Hypertension Mother Stomach cancer Mother's Brother Relation Name Status Comments Brother Father Maternal Grandmother Mother Mother's Brother Social History Tobacco Use Types Packs/Day Years Used Date Smoking Tobacco: Every Day Cigarettes 1 30.4 Started: 1994 Passive Smoke Exposure: Past Smokeless [...] Sign Reading Time Taken Comments Blood Pressure 124/88 11/13/2024 2:17 PM EDT Pulse 80 11/13/2024 2:17 PM EDT Temperature 37.1 ??C (98.7 ??F) 11/13/2024 2:17 PM ED T Respiratory Rate 20 11/13/2024 2:17 PM EDT Oxygen Saturation 98% 08/08/2024 11:40 AM EST Inhaled Oxygen Concentration - - Weight 71.7 kg (158 lb) 11/13/2024 2:17 PM EDT Height 160 cm (5' 3 ) 11/13/2024 2:17 PM EDT Body Mass Index 27.99 11/13/2024 2:17 PM EDT Plan of Treatment Upcoming Encounters Date Type Department Care Team ([facility] st Contact Info) Description 11/30/2024 10:30 AM EDT Telemedicine [facility] [address] [place], [place] [phone] WhyteTaiwo Blanco MD [address] [place] [address] Health Maintenance Due Date Last Done Comments CT Colonography 1974 Colonoscopy 1974 Colorectal Cancer Screening 1974 FIT DNA/Cologuard 1974 FIT 1974 FOBT 1974 HIV Screening 1974 Sigmoidoscopy 1974 Disability Screening 1974 Family Planning (PISQ) 1989 DTaP/Tdap/Td Vaccines [...] patient's age to complete this topic Meningococcal B Vaccine Aged Out No l onger eligible based on patient's age to complete [...] Procedure Name Priority Date/Time Associated Diagnosis Comments POCT URINALYSIS DIPSTICK Routine 11/13/2024 3:29 PM EDT Frequent urination LIPID PANEL, STANDARD Routine 08/14/2024 8:37 AM EST Iron deficiency ZZZ HISTORICAL HEPATITIS C ANTIBODY RFLX Routine 05/06/2020 11:30 AM EST from Last 3 Months or Most Recently Relevant to Health Maintenance Results * POCT Urinalysis (11/13/2024 3:29 PM EDT) Color, UA Yellow Clarity, UA Clear Glucose, UA Negative Bilirubin, UA Negative Ketones, UA Negative Spec Grav, UA 1.015 Blood, UA Negative Negative, None Detected pH, UA 7.0 Protein, UA Negative Urobilinogen, UA 0.2 Leukocytes, UA Negative Negative, Rare, Trace Nitrite, UA Negative Negative, None Detected Appearance, UA clear QC Media Lot # [id number] Lot# Expiration Date ,888 Urine 11/13/2024 3:29 PM EDT Taiwo Ku MD POINT OF CARE TEST ENTER/EDIT ORDERABLES Final Result * (ABNORMAL) Lipid Panel, Standard (08/14/2024 8:37 AM EST) Triglycerides 196(H) <150 mg/dL [facility] Comment:Desirable Triglyceri de: less than 150 mg/dLBorderline High Triglyceride 150-199 mg/dLHigh Triglyceride: 200-499 mg/dLVery High Triglyceride: greater than or equal to 5OO mg/dL Cholesterol 402(H) <200 mg/dL [facility] Comment:Desirable Cholestero l: less than 200 mg/dLBorderline High Cholesterol: 200-239 mg/dLHigh Cholesterol: greater than 239 mg/dL LDL Cholesterol Calculated 316(H) <100 mg/dL [facility] Comment:Desirable LDL: less than 100 mg/dLNear Optimal/Above Optimal LDL: 110- 129 mg/dLBorderline High LDL: 130-159 mg/dLHigh LDL: 160-189 mg/dLVery High LDL: greater than or equal to 190 mg/dL HDL Cholesterol 47 >40 mg/dL [facility] Comment:Desirable HDL: great er than 40 mg/dL Note: This HDL assay may give artificially low results in patients with liver disease. Blood Venous blood specimen / Unknown 08/14/2024 8:37 AM EST 08/14/2024 2:14 PM EST Taiwo Ku MD LAB BLOOD ORDERABL ES Final Result [facility] [address] [place] [address] [phone] * HEPATITIS C ANTIBODY RFLX (05/06/2020 11:30 AM EST) Hepatitis C Antibody Nonreactive Nonreactive [facility] Comment: Antibodies to HCV not detected; does not exclude early acute HCV infection. 05/06/2020 11:3 0 AM EST us Historical Provider HISTORICAL/NON ORDERABLE LABS Final Result [facility] [address] from Last 3 Months or Most Recently Relevant to Health Maintenance Insurance [employer] Care Teams Supervisor Cartography Relationship Specialty Start Date End Date Taiwo Bay MD [address] [place] [id number] PCP - General Internal Medicine 07/10/24
--- OUTSIDE RECORDS SUMMARY | 2024-11-13 16:45 | XMS_ITS | Encounter Summary ---
Author Organization [employer] Address [address] [place] [address] Care Team Providers Care Senior Physician Name Role Phone Taiwo Bay MD Primary Care Prov ider Encounter Details Date Type Department Care Team (Latest Contact Info) Description 11/13/2024 Travel Social History Tobacco Use Types Packs/Day [...] Care Team (Late st Contact Info) Description 11/30/2024 10:30 AM EDT Telemedicine [facility] [address] [place] [address] Taiwo Bay MD [address] [place] [address] documented as of this encounter Visit Diagnoses Not on filedocumented in this encounter Additional Health Concerns Assessment Noted Time PHQ-9 Depression Total Score: 8 08/08/19 25 11:42 AM EST documented as of this encounter Care Teams Senior Physician Relationship Specialty Start Date End Date Taiwo Bay MD [address] [place] [address] PCP - General Internal Medicine 07/10/24 documented as of this encounter
--- OUTSIDE RECORDS SUMMARY | 2024-11-13 16:45 | XMS_ITS | Encounter Summary ---
Author Organization [employer] Address [address] [facility] [address] [place] [address] Care Team Providers Care Operator Vacuum Name Role Phone Taiwo Bay MD Primary Care Prov ider Encounter Details Date Type Department Care Team (Latest Contact Info) Description 11/13/2024 2:15 PM EDT Procedure Visit [facility] [address] [place], [place] [phone] Taiwo Bay MD [address] [place] [address] Cervical cancer screening; Vaginal discharge; Frequent urination Social History Tobacco Use Types Packs/Day Years [...] 20 11/13/2024 2:17 PM EDT Oxygen Saturation - - Inhaled Oxygen Concentration - - Weight 71.7 kg (158 lb) 11/13/2024 2:17 PM EDT Height 160 cm (5' 3 ) 11/13/2024 2:17 PM EDT Body Mass Index 27.99 11/13/2024 2:17 PM EDT documented in this encounter Progress Notes * Taiwo Ku MD - 11/13/2024 2:15 PM EDT Subjective Patient ID: Ping Umana is a 49 y.o. female who presents for No chief complaint on file.. HPI Patient was seen on office for a pap smear Review of Systems Constitutional: Negative for chills, fatigue and fever. Respiratory: Negative for cough and shortness of breath. Cardiovascular: Negative for chest pain and palpitations. Gastrointestinal: Negative for abdominal distention, constipation and diarrhea. Genitourinary: Negative for vaginal bleeding and vaginal pain. Objective Physical Exam Constitutional: Appearance: Normal appearance. Genitourinary: General: Normal vulva. Neurological: General: No focal deficit present. Mental Status: She is alert and oriented to person, place, and time. Psychiatric: Mood and Affect: Mood normal. Behavior: Behavior normal. Assessment/Plan Problem List Items Addressed This Visit Cervical cancer screening Disussed with patient procedure. I was assisted with licensing officer Ms. Funezcheng Alonso. Procedure was performed without any complications. Will call back to discuss results Relevant Orders HPV High Risk with Reflex to Subtypes Pap Smear Other Visit Diagnoses Vaginal discharge Relevant Orders Chlamydia/N. Gonorrhoeae RNA, TMA, Urogenitial Bacterial Vaginosis Panel documented in this encounter Miscellaneous Notes * Assessment & Plan Note - Taiwo Ku MD - 11/13/2024 2:47 PM EDTAssociated Problem(s): Cervical cancer screening Disussed with patient procedure. I was assisted with licensing officer Vini Alonso. Procedure was performed without any complications. Will call back to discuss results * Addendum Note - Leonard Alonso MA - 11/13/2024 2:15 PM EDTAddended by: LEONARD ALONSO on: 11/13/2024 03:31 PM Modules accepted: Orders documented in this encounter Plan of Treatment Upcoming Encounters Date Type Department Care Team (Late st Contact Info) Description 11/30/2024 10:30 AM EDT Telemedicine [facility] [address] [place] [address] Taiwo Bay MD [address] [place] [address] Scheduled Orders Name Type Priority Associated Diagnoses Order Schedule Chlamydia/N. Gonorrhoeae RNA, TMA, Urogenitial Microbiology Routine Vaginal discharge Ordered: 11/13/2024 Bacterial Vaginosis Panel Microbiology Routine Vaginal discharge Ordered: 11/13/2024 HPV High Risk with Reflex to Subtypes Lab Routine Cervical cancer screening Ordered: 11/13/2024 Pap Smear Pathology and Cytology Routine Cervical cancer screening Ordered: 11/13/2024 documented as of this encounter Procedures Procedure Name Priority Date/Time Associated Diagnosis Comments POCT URINALYSIS DIPSTICK Routine 11/13/2024 3:29 PM EDT Frequent urination documented in this encounter Results * POCT Urinalysis (11/13/2024 3:29 PM [...] Media Lot # [id number] Lot# Expiration Date Urine 11/13/2024 3:29 PM EDT Taiwo Ku MD POINT OF CARE TEST ENTER/EDIT ORDERABLES Final Result documented in this encounter Visit Diagnoses Diagnosis Cervical cancer screening Screening for malignant neoplasm of the cervix Vaginal discharge Leukorrhea, not specified as infective Frequent urination Urinary frequency documented in this encounter Additional Health Concerns Assessment Noted Time PHQ-9 Depression Total Score: 8 08/08/19 11:42 AM EST documented as of this encounter Care Teams Operator Vacuum Relationship Specialty Start Date End Date Taiwo Bay MD [address] [place] [phone] PCP - General Internal Medicine 07/10/24 documented as of this encounter
[2024-11-14 06:13] LABS: CT PCR NOT DETECTED (Not Detect.); NG PCR NOT DETECTED (Not Detect.)
[2024-11-14 08:17] LABS: Bacterial Vaginosis PCR POSITIVE (Negative); Candida Group PCR NOT DETECTED (Not Detect); Candida glab krusei PCR NOT DETECTED (Not Detect); Trichomonas vaginalis PCR DETECTED (Not Detect)
== END 2024-11-13 16:20 | disposition home or self-care (01) ==
LOC: HO.CHCLNP 16:19
PROVIDERS: Visit Provider Internal Medicine
DX: N89.8 Other specified noninflammatory disorders of vagina (principal)
CPT/HCPCS: 81515; 87491; 87591

== ENCOUNTER 2024-11-13 18:36 | Outpatient (REF) | payer MEDICAID, SELFPAY ==
[2024-11-16 14:28] LABS: HPV Genotype 16 Negative (Negative); HPV Genotype 18 Negative (Negative); HPV High Risk Negative (Negative)
== END 2024-11-13 18:37 | disposition home or self-care (01) ==
LOC: HO.HHCLNP 18:36
PROVIDERS: Visit Provider Internal Medicine
DX: Z12.4 Encounter for screening for malignant neoplasm of cervix (principal)
CPT/HCPCS: 87626; 88175

== ENCOUNTER 2024-12-05 09:06 | Outpatient (REF) | payer MEDICAID, SELFPAY ==
[2024-12-05 14:47] LABS: Alanine Aminotransferase 58 U/L (0-31); Albumin Level 4.5 g/dL (3.5-5.0); Alkaline Phosphatase 75 U/L (39-117); Anion Gap 10 (12-20); Aspartate Amino Transferase 39 U/L (5-31); Bilirubin Total 0.2 mg/dL (0.0-1.0); Blood Urea Nitrogen 8 mg/dL (9-16); Calcium 9.5 mg/dL (8.4-10.2); Carbon Dioxide 26 mmol/L (22-29); Chloride 103 mmol/L (96-108); Cholesterol 195 mg/dL (<200); Estimated Glomerular Filt Rate > 60; Glucose Random 95 mg/dL (60-115); HDL Cholesterol 39 mg/dL (>40); LDL Cholesterol Calculated 126 mg/dL (<100); Potassium 4.1 mmol/L (3.3-5.1); Sodium 135 mmol/L (135-145); Total Protein 6.7 g/dL (6.5-8.0); Triglycerides 152 mg/dL (<150)
== END 2024-12-05 09:07 | disposition home or self-care (01) ==
LOC: HO.CHCLDS 09:06
PROVIDERS: Visit Provider Internal Medicine
DX: E78.2 Mixed hyperlipidemia (principal)
CPT/HCPCS: 36415; 80053; 80061